=== PATIENT | male | born 1945 | race Caucasian/White ===

== ENCOUNTER → 2018-05-28 14:53 | Outpatient (CLI) | payer OTHER, SELFPAY | PROVIDERS: PCP Nurse Practitioner Family; Visit Provider Internal Medicine Interventional Cardiology | DX: R00.2 Palpitations (principal) | CPT/HCPCS: 93005; 93010 ==

== ENCOUNTER 2018-07-02 01:25 | Outpatient (CLI) | payer OTHER, SELFPAY | END 2018-07-02 01:45 | PROVIDERS: PCP Nurse Practitioner Family; Visit Provider Internal Medicine Interventional Cardiology | DX: R00.1 Bradycardia, unspecified (principal); I49.1 Atrial premature depolarization; I49.3 Ventricular premature depolarization | CPT/HCPCS: 93225 ==

== ENCOUNTER 2018-07-02 07:15 | Outpatient (CLI) | payer OTHER, SELFPAY ==
[2018-07-02 08:54] LABS: Hemoglobin A1C 5.1 % (4.5-6.2)
[2018-07-02 08:56] LABS: Anion Gap 8.5 mmol/L (3-11); BUN 16 mg/dL (7-18); CO2 27.5 mmol/L (21.0-32.0); CREATININE 0.82 mg/dL (0.70-1.30); Calcium 8.5 mg/dL (8.5-10.1); Chloride 106 mmol/L (98-107); Cholesterol 150 mg/dL (50-200); Glucose 105 mg/dL (70-100); HDL Cholesterol 80 mg/dL (40-60); LDL CHOLESTEROL 62 mg/dL (<100); Sodium 142 mmol/L (136-145); Triglyceride 26 mg/dL (30-150)
== END 2018-07-02 07:35 ==
PROVIDERS: PCP Nurse Practitioner Family; Visit Provider Nurse Practitioner Family
DX: R73.01 Impaired fasting glucose (principal); I10 Essential (primary) hypertension; E78.5 Hyperlipidemia, unspecified
CPT/HCPCS: 36415; 80048; 80061; 83721; 83036

== ENCOUNTER 2018-07-03 12:27 | Outpatient (CLI) | payer OTHER, SELFPAY ==
--- NOTE | 2018-07-03 16:08 | W.HOLTRPT ---
Holter Monitor Report Holter Monitor Note: Baseline rhythm sinus. Occasional single PAC. 26 first of SVT, longest 37 beats, fastest 178 bpm. No atrial fibrillation. Frequent single PVC, 1106, 1.1% total beat. 27 couplets, 1 triplet, no VT. Nocturnal heart rates as low as 50-55 bpm, sinus bradycardia. No symptoms. Average heart rate 74 bpm, range 51-126 bpm.
== END 2018-07-03 12:47 ==
PROVIDERS: PCP Nurse Practitioner Family; Visit Provider Nurse Practitioner Family
DX: I49.1 Atrial premature depolarization (principal); I49.3 Ventricular premature depolarization
CPT/HCPCS: 93226

== ENCOUNTER 2018-07-09 14:55 | Outpatient (CLI) | payer OTHER, SELFPAY | END 2018-07-09 15:15 | PROVIDERS: PCP Nurse Practitioner Family; Visit Provider Internal Medicine Interventional Cardiology | DX: R00.1 Bradycardia, unspecified (principal); I49.3 Ventricular premature depolarization; I49.1 Atrial premature depolarization; I10 Essential (primary) hypertension | CPT/HCPCS: 93005; 93010 ==

== ENCOUNTER 2018-08-20 08:46 | Outpatient (CLI) | payer OTHER, SELFPAY | END 2018-08-20 09:06 | PROVIDERS: PCP Nurse Practitioner Family; Visit Provider Internal Medicine Interventional Cardiology | DX: I49.3 Ventricular premature depolarization (principal); I49.1 Atrial premature depolarization; R00.1 Bradycardia, unspecified; I47.1 Supraventricular tachycardia | CPT/HCPCS: 93005; 93010 ==

== ENCOUNTER 2018-11-26 10:17 | Outpatient (CLI) | payer OTHER, SELFPAY | END 2018-11-26 10:37 | PROVIDERS: PCP Nurse Practitioner Family; Visit Provider Internal Medicine Interventional Cardiology | DX: I49.1 Atrial premature depolarization (principal); I49.3 Ventricular premature depolarization; R00.1 Bradycardia, unspecified; I10 Essential (primary) hypertension; R06.02 Shortness of breath | CPT/HCPCS: 93005; 93010 ==

== ENCOUNTER 2019-02-05 00:37 | Outpatient (CLI) | payer OTHER, SELFPAY ==
--- NOTE | 2019-02-05 08:40 | DI.MRI_ITS ---
SYMPTOM/DIAGNOSIS: PERSISTENT LLE TINGLING, S/P TX, ? HERNIATION, LOW BACK PAIN, SPINAL STENOSIS, RADICULOPATHY, LT LEG PARESTHESIAS, M54.42,G89.29,M48.00,R20.2,M54.16 LUMBAR SPINE MRI: Routine noncontrast examination. Comparison is made with 09/01/06. The conus medullaris has a normal appearance and location. At L 5-S 1, there is disc desiccation. There is a small central disc herniation which does not appear to impinge upon the nerve roots. There are degenerative changes of the facets present. Mild narrowing of the left neural foramen is seen. No significant right neural foraminal stenosis is present. At L 4-5, there is disc desiccation. Endplate degenerative signal changes are present. There is a small central disc herniation. There are hypertrophic changes of the facets and ligamentum flavum resulting in mild narrowing of the central spinal canal. There is mild right and moderate left neural foraminal stenosis. At L 3-4, there is disc desiccation. Endplate degenerative signal changes are present. There is a diffuse disc bulge. There are hypertrophic changes of the facets and ligament flavum resulting in marked central spinal canal stenosis. There is moderate right and moderately severe left neural foraminal stenosis. At L 2-3, there is disc desiccation. Endplate degenerative signal changes are present. No significant central spinal canal stenosis is seen. There is mild bilateral neural foraminal stenosis. At L 1-2, there is disc desiccation. There is a diffuse disc bulge. No significant central spinal canal stenosis is seen. No significant neural foraminal stenosis is present. Apart from the degenerative signal change, marrow signal is within normal limits. IMPRESSION: Multi level degenerative disc disease and facet arthropathy resulting in central spinal canal and neural foraminal stenosis. The findings are most marked at the L 3-4 disc level.
== END 2019-02-05 00:57 ==
PROVIDERS: PCP Nurse Practitioner Family; Visit Provider Nurse Practitioner Family
DX: M54.42 Lumbago with sciatica, left side (principal); M54.16 Radiculopathy, lumbar region; R20.2 Paresthesia of skin; M51.17 Intervertebral disc disorders with radiculopathy, lumbosacral region; M48.07 Spinal stenosis, lumbosacral region; G89.29 Other chronic pain
CPT/HCPCS: 72148

== ENCOUNTER 2019-02-20 10:11 | Outpatient (CLI) | payer OTHER, SELFPAY ==
[2019-02-20 10:46] VITALS: BP 117/68; PULSE 56; RESP 18; TEMP 36.5; O2SAT 98
[2019-02-20] MEDS: Omnipaque 240 MG/ML 50 ML BTL IJ (11:21)
[2019-02-20] MEDS: methylPREDNISolone ACETATE 40 MG/ML VIAL IJ (11:23)
[2019-02-20 11:28] VITALS: BP 138/73; PULSE 57; RESP 15; O2SAT 100
--- NOTE | 2019-02-20 11:32 | DI.RAD_ITS ---
SYMPTOM/DIAGNOSIS: LUMBAR RADICULOPATHY C-ARM: Fluoroscopy Time: 28.5 sec 15.36 mGy C-arm fluoroscopy was utilized by Dr. Villa. Hard copies show apparent epidural injection at the L 5-S 1 level midline.
--- NOTE | 2019-02-20 11:32 | PDOC.PAIN ---
Pain Clinic Procedure Note Current Active Problems Problem Status Onset Spinal stenosis of lumbar region with radiculopathy Acute EPIDURAL STEROID WITH CATHETER INJECTION PROCEDURE NOTE COMMENTS: Patient had several epidural steroid injections in the past 1999 1612. He has back pain mostly left-sided radiating to his left buttock and with numbness in his left foot. MRI shows multiple levels of degenerative changes with both foraminal and central stenosis worse at L3-4. JESUS ENRIQUE has been referred to the [facility] for lumbar epidural steroid injection. Patient was greeted by the nurse who verified patients name and . Patient was then taken to the fluoroscopy suite. Patient was interviewed and the medical record reviewed. There were no medical, pharmacologic, radiographic, or other structural contraindications to attempting fluoroscopically guided lumbar epidural steroid injection. Risks and expected side effects as well as potential benefits of the procedure were reviewed and voiced concerns addressed. The patient consent form was signed and witnessed. Standard time-out procedure was performed. Patient was placed in the prone position on the fluoroscopy table and automated blood pressure cuff and pulse oximeter applied. The skin entry point for entering/approaching the epidural space by a {L5-S1} and marked. Following thorough chlorhexadine preparation of the skin and draping and 1% lidocaine infiltration of the skin entry point and subcutaneous tissues, a 17 gauge Touhy needle was placed under fluoroscopic guidance and with loss of resistance technique into the epidural space. Needle tip placement and depth were aided and confirmed by fluoroscopy. There was no paresthesia or return of blood or CSF through the needle. An Arrow cath was thread to the {left and cephalad} and 1 cc's of Omnipaque 240 was injected with clear epidural spread confirmed with fluoroscopy. 80mg depomedrol was injected. There was not any unusual discomfort expressed. Vital signs were stable throughout the procedure and were as recorded in nursing records. Follow up plans and appointments were discussed.Post procedure instruction was given as documented in nursing records and having met discharge criteria and was discharged from the [facility]. COMMENTS: Patient will follow-up as needed. Can repeat or consider left L3-4 transforaminal injection. Does not appear to be a surgical candidate at this time.
== END 2019-02-20 10:31 ==
PROVIDERS: PCP Nurse Practitioner Family; Visit Provider Anesthesiology Pain Medicine
DX: M48.061 Spinal stenosis, lumbar region without neurogenic claudication (principal); M54.16 Radiculopathy, lumbar region
CPT/HCPCS: 62323; 72100; J1030; Q9967

== ENCOUNTER 2019-02-25 08:58 | Outpatient (CLI) | payer OTHER, SELFPAY | END 2019-02-25 09:18 | PROVIDERS: PCP Nurse Practitioner Family; Visit Provider Internal Medicine Interventional Cardiology | DX: R42 Dizziness and giddiness (principal); I10 Essential (primary) hypertension | CPT/HCPCS: 93005; 93010 ==

== ENCOUNTER 2019-05-21 07:06 | Outpatient (CLI) | payer OTHER, SELFPAY ==
[2019-05-21 07:52] LABS: ALT 37 U/L (12-78); AST 30 U/L (15-37); Albumin 3.7 g/dL (3.4-5.0); Alkaline Phosphatase 88 U/L (46-116); Anion Gap 8.4 mmol/L (3-11); BUN 21 mg/dL (7-18); Bilirubin, Total 0.6 mg/dL (0.2-1.0); CO2 27.6 mmol/L (21.0-32.0); CREATININE 0.98 mg/dL (0.70-1.30); Calcium 8.9 mg/dL (8.5-10.1); Calculated LDL 66 mg/dL; Chloride 103 mmol/L (98-107); Cholesterol 153 mg/dL (50-200); Glucose 97 mg/dL (70-100); HDL Cholesterol 82 mg/dL (40-60); Potassium 3.5 mmol/L (3.5-5.1); Sodium 139 mmol/L (136-145); Triglyceride 28 mg/dL (30-150)
== END 2019-05-21 07:26 ==
PROVIDERS: PCP Nurse Practitioner Family; Visit Provider Internal Medicine Interventional Cardiology
DX: I10 Essential (primary) hypertension (principal); E78.5 Hyperlipidemia, unspecified; R73.01 Impaired fasting glucose
CPT/HCPCS: 36415; 80053; 80061; 83721; 83036

== ENCOUNTER 2019-11-21 14:18 | Outpatient (REF) | payer OTHER, SELFPAY ==
[2019-11-21 16:31] LABS: Bilirubin Negative (Negative); Blood Trace-intact (Negative); Clarity Clear (Clear); Glucose Negative (Negative); Ketones Negative (Negative); Leukocyte Esterase Negative (Negative); Nitrite Negative (Negative); Specific Gravity >= 1.030 (1.005-1.025); Urobilinogen 0.2 EU/dL (Up TO 0.2); pH 5.5 (5-8)
[2019-11-21 16:48] LABS: Bacteria Negative HPF (Negative); C & S Indicated? No; Crystals Negative HPF (Negative); Epithelial Cells Negative HPF (Negative); Mucus Trace (Negative); RBC 0-2 HPF (0-2); WBC Negative HPF (0-5)
== END 2019-11-21 14:38 ==
LOC: LBN 14:18
PROVIDERS: PCP Nurse Practitioner Family; Visit Provider Urology
DX: N40.1 Benign prostatic hyperplasia with lower urinary tract symptoms (principal)
CPT/HCPCS: 81003; 81015

== ENCOUNTER 2020-04-09 00:58 | Outpatient (CLI) | payer OTHER, SELFPAY ==
--- NOTE | 2020-04-09 12:29 | DI.US_ITS ---
APPROVED REPORT EXAM: Comprehensive 2D, Doppler, and color-flow Echocardiogram Patient Location: Out-Patient Journe[employer] Powerhouse Operator: Ling Eli RDCS (AE) Indications: Ascending aorta dilation, Ventricular premature depolarization Other Information Study Quality: Adequate Conclusion Left Ventricle : The left ventricle is normal size. The left ventricular systolic function is normal. The left ventricular ejection fraction is within the normal range. There is normal left ventricular wall thickness. There is normal LV segmental wall motion. The left ventricular diastolic function is normal. LVEF is 60-65%. Right Ventricle : The right ventricle is normal size. The right ventricular systolic function is norm al. The RVSP is 28.7mmHg. Atria : The left atrium size is normal. The right atrium size is normal. Aortic Valve : Moderate aortic valve sclerosis. Aortic valve is trileaflet. There is no aortic valvul ar stenosis. Trace aortic regurgitation. Mitral Valve : Mild mitral annular calcification. No evidence of mitral valve stenosis. Mild mitral r egurgitation. Great Vessels : The aortic root is normal in size. 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 Aortic arc h is not well visualized. The IVC collapses <50% with inspiration. Compared to echocardiogram from 10/25/2017: The estimated RVSP has decreased and the mitral valve regu rgitation has decreased slightly. Wall motion Left Ventricle The left ventricle is normal size. The left ventricular systolic function is normal. The left ventric ular ejection fraction is within the normal range. There is normal left ventricular wall thickness. T here is normal LV segmental wall motion. The left ventricular diastolic function is normal. There is no ventricular septal defect visualized. LVEF is 60-65%. Right Ventricle The right ventricle is normal size. The right ventricular systolic function is normal. The RVSP is 28 .7mmHg. Atria The left atrium size is normal. The right atrium size is normal. The interatrial septum is intact wit h no evidence for an atrial septal defect. Aortic Valve Moderate aortic valve sclerosis. Aortic valve is trileaflet. There is no aortic valvular stenosis. Tr keena aortic regurgitation. Mitral Valve Mild mitral annular calcification. No evidence of mitral valve stenosis. Mild mitral regurgitation. Tricuspid Valve The tricuspid valve is normal in structure. There is no tricuspid valve stenosis. Trace tricuspid reg urgitation. Pulmonic Valve The pulmonary valve is normal in structure. There is no pulmonic valvular stenosis. Trace pulmonic re gurgitation. Great Vessels The aortic root is normal in size. 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 Aortic arch is not well vi sualized. The IVC collapses <50% with inspiration. Pericardium There is no pericardial effusion. There is no pleural effusion. 2D Dimensions IVSD d PLAX 1.05 cm M: 0.6-1.2 LV Vol A2C d MOD 151.7 mL LVPW d PLAX 1.06 cm M: 0.6 - 1.2 LV Vol A4C d MOD 150.5 mL LVID d PLAX 5.81 cm M: 4.2 - 5.8 LA vol/ BSA A2C s A-L 33.5 mL/m2 LVDs 4.00 cm M: 2.5 - 4.0 LA vol/ BSA A4C s A-L 26.6 mL/m2 Ao Root d 2.87 cm M: 3.1 - 3.7 LA Vol/ BSA Biplane s A-L 30.1 mL/m2 RA Area A4C 19.40 cm2 LA Area A4C s MOD 20.42 cm2 RA Vol/ BSA A4C s A-L 27.1 mL/m2 LA Area A2C s MOD 23.09 cm2 Ao Asc Diam d 4.16 cm M: 2.6 - 3.4 LV EF A4C MOD 63.4 % LV EF Teichholz 57.0 % LV EF A2C MOD 60.6 % LVEF (Gama's) 62.07 % M: 52 - 72 LV EF Biplane MOD 62.1 % LV Volume 109.45 mL M: 62 - 150 SV 93.93 mL LV Volume Index 48.86 mL/m2 M: 34 - 74 SV Index 41.94 mL/m2 LV Vol Biplane MOD 151.3 mL FS 30.35 % M-Mode TAPSE 2.60 cm (M/F) >1.7 LV Diastology MV E' medial 0.082 (>0.07 m/s) E/A Ratio 1.1 LV E/e MED 9.15 (<14) MV E Vmax 0.75 (0.4-1.3 m/s) MV E' lateral 0.143 (>0.1 m/s) MV A Vmax 0.70 (0.4-1.3 m/s) LV E/e LAT 5.25 (<14) MV E/A Ratio 1.05 MV E/E' medial 9.19 MV E/E' lateral 5.26 Aortic Valve LVOT Area 3.37 cm2 AoV Area Vmax 2.28 cm2 LVOT Vmax 1.19 m/s AoV Area/ BSA (Vmax) 1.02 cm2/m2 LVOT Mean Chandu. 0.77 m/s TERESA Mean Chandu. 2.09 cm2 LVOT Peak Grad 5.7 mmHg TERESA Mean Chandu. Index 0.93 cm2/m2 LVOT Mean Grad 2.8 mmHg AR DT 2258 msec LVOT VTI 0.283 m AR PHT 655 msec LVOT Diam s 2.05 cm AoV Vmax 1.76 m/s Velocity Ratio 0.67 AoV Mean Chandu. 1.25 m/s AoV Peak Grad 12.3 mmHg LVOT SV 95.28 mL AoV Mean Grad 6.9 mmHg AoV VTI 0.367 m AoV Area VTI 2.60 cm2 AoV Area/ BSA (VTI) 1.16 cm/m2 Mitral Valve MV DT 251 (160-240 msec) MR Vmax 4.67 m/s MV PHT 73 msec MR VTI 1.368 m MV Area PHT 3.03 cm2 MR Peak Grad 87.2 mmHg MR Mean Grad 65.3 mmHg MR PISA Radius 0.42 cm MR EROA 0.08 cm2 MR Aliasing Velocity 0.35 m/s MR PISA 1.09 cm2 Pulmonary Valve PV Vmax 1.61 (0.5-1.5 m/s) RVOT Peak Gr. 2.11 mmHg PV Peak Grad 10.4 mmHg RVOT Mean Gr. 1.15 mmHg PV Mean Grad 6.0 mmHg RVOT VTI 0.192 m PV VTI 0.359 m RVOT Vmax 0.73 m/s Tricuspid Valve TR Peak Grad 20.7 mmHg TR Vmax 2.27 m/s RA Pressure 8.00 mmHg RVSP (TR) 28.7 mmHg
== END 2020-04-09 01:18 ==
PROVIDERS: PCP Nurse Practitioner Family; Visit Provider Internal Medicine Cardiovascular Disease
DX: I49.3 Ventricular premature depolarization (principal); I77.810 Thoracic aortic ectasia; I34.0 Nonrheumatic mitral (valve) insufficiency; I35.8 Other nonrheumatic aortic valve disorders; I10 Essential (primary) hypertension
CPT/HCPCS: 93306

== ENCOUNTER 2020-05-05 13:21 | Outpatient (CLI) | payer OTHER, SELFPAY ==
--- NOTE | 2020-05-05 06:00 | DI.RAD_ITS ---
EXAM: XR PAIN CLINIC LUMBAR SP 2V CLINICAL HISTORY: Lumbar Radiculopathy. TECHNIQUE: Fluoroscopy was provided for the referring physician for guidance with performing injecti on procedure. COMPARISON: No exams were available for comparison FINDINGS: Please see procedure note for details. Fluoro Time: 33.2 seconds RADIATION DOSE DELIVERED:
[2020-05-05 13:24] VITALS: BP 117/65; PULSE 57; RESP 16; TEMP 37.1; O2SAT 99
[2020-05-05] MEDS: Omnipaque 240 MG/ML 50 ML BTL IJ (14:11)
[2020-05-05] MEDS: methylPREDNISolone ACETATE 80 MG/ML VIAL IJ (14:14)
--- NOTE | 2020-05-05 14:31 | PDOC.PAIN ---
Pain Clinic Procedure Note Procedure Note Procedure Note: Lumbar Epidural Steroid Injection Procedure Note Pre-operative diagnosis: lumbar spinal stenosis, lumbar radiculopathy Post-operative diagnosis: same as above COMMENTS: previously received LESI with variable pain relief. Predominant symptoms is left lower back with bilateral buttock pain. JESUS ENRIQUE has been referred to the [facility] for lumbar epidural steroid injection. The patient was greeted by the nurse who verified patients name and . Patient was then taken to the fluoroscopy suite. The patient was interviewed and the medial record reviewed. There were no medical, pharmacologic, radiographic, or other structural contraindications to attempting fluoroscopically guided lumbar epidural steroid injection. Risks and expected side effects as well as potential benefits of the procedure were reviewed and voiced concerns expressed. The patient consent form was signed and witnessed. Standard patient time-out procedure was performed. The patient was placed in the prone position on the fluoroscopy table and automated blood pressure cuff and pulse oximeter applied. The skin entry point for entering/approaching the epidural space by a L5-S1 and marked. Following thorough chlorhexadine preparation of the skin and draping and 1% lidocaine infiltration of the skin entry point and subcutaneous tissues, a 18 gauge Touhy needle was placed under fluoroscopic guidance and with loss of resistance technique into the epidural space. Needle tip placement and depth were aided and confirmed by fluoroscopy. There was no paresthesia or return of blood or CSF through the needle. 1 cc's of Omnipaque 240 was injected with clear epidural spread confirmed with fluoroscopy. 80mg depomedrol was injected. There was not any unusual discomfort expressed by JESUS ENRIQUE. Patient's vital signs were stable throughout the procedure and were as recorded in nursing records. Follow up plans and appointments were discussed with patient. Post procedure instruction was given as documented in nursing records and having met discharge criteria and was discharged from the [facility]. COMMENTS: If this procedure is helpful, it can be completed up to 3 times per 12 months. I personally performed the entire procedure. Rebel Su MD Pain Management
[2020-05-05 14:40] VITALS: BP 148/95; PULSE 62; RESP 20; O2SAT 98
== END 2020-05-05 13:41 ==
PROVIDERS: PCP Nurse Practitioner Family; Visit Provider Internal Medicine
DX: M48.061 Spinal stenosis, lumbar region without neurogenic claudication (principal); M54.16 Radiculopathy, lumbar region
CPT/HCPCS: 62323; 72100; J1040; Q9967

== ENCOUNTER 2020-05-22 12:46 | Outpatient (REF) | payer OTHER, SELFPAY ==
[2020-05-25 09:24] LABS: PSA, Diagnostic 1.4 ng/mL (0.0-6.5)
== END 2020-05-22 13:06 ==
LOC: LBN 12:46
PROVIDERS: PCP Nurse Practitioner Family; Visit Provider Urology
DX: N40.1 Benign prostatic hyperplasia with lower urinary tract symptoms (principal)
CPT/HCPCS: 84153

== ENCOUNTER 2020-06-11 10:08 | Outpatient (CLI) | payer OTHER, SELFPAY ==
[2020-06-11 10:17] VITALS: BP 104/59; PULSE 70; RESP 16; TEMP 37.1; O2SAT 94
[2020-06-11] MEDS: Bupivacaine 0.5% Pres-Free 10 ML VIAL IJ (10:50)
--- NOTE | 2020-06-11 10:57 | DI.RAD_ITS ---
EXAM: XR PAIN CLINIC LUMBAR SP 2V CLINICAL HISTORY: Dx:Lumbar Spondylosis TECHNIQUE: 2D and realtime digital imaging was performed. CONTRAST MATERIAL: Refer to procedure report. COMPARISON: No exams were available for comparison FINDINGS: Fluoroscopy was provided for Dr. Song during the performance of a lumbar epidural steroid injection. Please refer to the procedure report for complete details. Fluoro time: 55.1 seconds IMPRESSION:
--- NOTE | 2020-06-11 10:59 | PDOC.PAIN_ITS ---
Pain Clinic Procedure Note Procedure Note Procedure Note: Lumbar/Sacral Medial Branch Blocks JESUS ENRIQUE has been referred to the [facility] for lumbar/sacral medial branch blocks. COMMENTS: Previously seen in the clinic. Recent LESI without relief. Mostly axial low back pain with some pain radiating into the bilateral buttocks and thighs. DX: Lumbosacral spondylosis without myelopathy. Patient was interviewed and the medical record reviewed. There were no medical, pharmacologic, radiographic or other structural contraindications to attempting fluoroscopically guided local anesthetic lumbar/sacral medial branch blocks. Risks and expected side effects as well as potential benefit of the procedure were reviewed and voiced concerns addressed. The printed consent form was signed and witnessed. Standard time-out procedure was performed. Patient was placed in the prone position on the fluoroscopy table and automated blood pressure cuff and pulse oximeter applied. The skin entry points for approaching the anatomic target points of the segmental medial branches of bilateral L3-L5 were identified with anfluoroscopy and marked. Following thorough Chlorhexadine preparation of the skin and draping and 1% lidocaine infiltration of the skin entry points and subcutaneous tissues, a 22 gauge spinal needle was placed under fluoroscopic guidance down on to the target point for each respective segmental medial branch.Position was confirmed in A/P, oblique and lateral views with 0.25ml of omnipaque 240. At this point I injected 0.5ml of 0.5% Bupivacaine at the segmental nerve. Vital signs were stable throughout the procedure and were as recorded in the docflowsheet by the nursing staff. Follow up plans and appointments were discussed and was instructed to keep careful note of how the usual pain was modified by these injections. Mallorie rodriguez was asked to keep a pain diary for the next 24 hours using a numeric pain scale of 0-10 and report these results at the follow-up visit. Post procedure instruction was given as documented in the nursing documentation and having met discharge criteria. Patient was discharged from the [facility]. Based on the medial branches blocked today, if the patient has adequate relief and we are able to proceed to radiofrequency ablation, the treatment should result in the denervation of the bilateral L4-L5 and L5-S1 FACET JOINTS. We would expect to denervate a total of 4 facets during the radiofrequency ablation. COMMENTS: He will call back with his 1-4 hour post-procedure pain scores. CC: Katie Bradford APRN
[2020-06-11 11:06] VITALS: BP 123/74; PULSE 63; RESP 18; O2SAT 97
[2020-06-11] MEDS: Omnipaque 240 MG/ML 50 ML BTL IJ (11:06)
== END 2020-06-11 10:28 ==
PROVIDERS: PCP Nurse Practitioner Family; Visit Provider Preventive Medicine Occupational Medicine
DX: M47.817 Spondylosis without myelopathy or radiculopathy, lumbosacral region (principal)
CPT/HCPCS: 64493; 64494; 72100; Q9967

== ENCOUNTER 2020-07-10 04:40 | Outpatient (CLI) | payer OTHER, SELFPAY ==
--- NOTE | 2020-07-10 | DI.MRI_ITS ---
EXAM: MR LUMBAR SPINE WO CLINICAL HISTORY: LUMBAR SPINAL STENOSIS, BACK PAIN, BILAT LEG PAIN TECHNIQUE: Multiplanar multisequence MRI was performed. COMPARISON: CR LEFT SHOULDER COMPLETE from 09/16/2016 MR MR lumbar spine wo from 02/05/2019 MR MR lumbar spine wo from 02/05/2019 FINDINGS: The conus medullaris appears normal. There is red marrow reconversion. Prominent disc osteophytes a re again noted from T12-L1 through L4-5. Milder degenerative disc changes are seen at L5-S1. The T12-L1 and L1-2 levels show no significant central canal stenosis. At L2-3, there is mild centra l canal stenosis and moderate neural foraminal narrowing. This appears stable. At L3-4, there are ag ain noted to be broad-based disc osteophytes, facet degenerative changes and ligamentous hypertrophy combining to produce severe central canal stenosis, unchanged. There is also severe neural foraminal narrowing, greater on the left. At L4-5, there are prominent broad-based disc osteophytes and facet degenerative changes combine to produce mild to moderate central canal stenosis, unchanged. There i s bilateral neural foraminal narrowing, greater on the left. At L5-S1, there is again noted be minim al disc bulging. There are facet degenerative changes and ligamentous hypertrophy combining to produ ce mild central canal stenosis and left neural foraminal narrowing. IMPRESSION: Stable severe degenerative disc changes and facet degenerative changes, greatest at L 3 4 where there is severe central canal stenosis and bilateral neural foraminal narrowing. DATA REPOSITORY:
== END 2020-07-10 05:00 ==
PROVIDERS: PCP Nurse Practitioner Family; Visit Provider Nurse Practitioner Family
DX: M47.816 Spondylosis without myelopathy or radiculopathy, lumbar region (principal); M48.061 Spinal stenosis, lumbar region without neurogenic claudication; M47.817 Spondylosis without myelopathy or radiculopathy, lumbosacral region
CPT/HCPCS: 72148

== ENCOUNTER 2020-07-28 14:35 | Outpatient (CLI) | payer OTHER, SELFPAY ==
--- NOTE | 2020-07-28 06:00 | DI.RAD_ITS ---
EXAM: XR PAIN CLINIC LUMBAR SP 2V CLINICAL HISTORY: Dx: Lumbar Radiculopathy. TECHNIQUE: Fluoroscopy was provided for the referring physician for guidance with performing injecti on procedure. COMPARISON: No exams were available for comparison FINDINGS: Please see procedure note for details. Fluoro time: 30.4 secs, 18.93 mGy RADIATION DOSE DELIVERED:
[2020-07-28 14:48] VITALS: BP 137/77; PULSE 58; RESP 16; TEMP 37.2; O2SAT 98
[2020-07-28] MEDS: Omnipaque 240 MG/ML 50 ML BTL IJ (15:30)
[2020-07-28] MEDS: methylPREDNISolone ACETATE 80 MG/ML VIAL IJ (15:30)
[2020-07-28] MEDS: Normal Saline 20 ML VIAL (15:31)
[2020-07-28 15:36] VITALS: BP 136/81; PULSE 66; RESP 20; O2SAT 94
--- NOTE | 2020-07-28 15:38 | PDOC.PAIN ---
Pain Clinic Procedure Note Procedure Note Procedure Note: PROCEDURE NOTE CAUDAL EPIDURAL STERIOID INJECTION Date of Service: July 28, 2020 Patient: JESUS ENRIQUE Provider: Laly Gaitan KLAUS has been referred to the [facility] for caudal epidural steroid injection. Pre-operative diagnosis: lumbar spinal stenosis Post-operative diagnosis: same as above COMMENTS: Referring provider: Jennyopal Weinstein APRN Symptoms: dull ache across lower back with bilateral buttock ache and intermittent leg pain Imaging reviewed: MRI L spine done 07/10/2020 reviewed with patient Notes: patient underwent L5-S1 LESI by Dr Villa in 2018 which provided significant pain relief to his lower back and leg symptoms that lasted for more than 12 months. Then pain recurred in similar distribution in december 2019, he undewrent L5-S1 by me in 04/2020 which unfortunatley provided minimal pain relief. Due to axial back pain that is described as dull and ache, patient was scheduled for bilateral lumbar diagnostic medial branch nerve block with Dr Song, which unfortunately provided mixed results. He is here today to have a repeat lumbar epidural steroid injection. I reviewed the most recent MRI L spine result with him in pre-procedure suite. He reports he can no longer walk as much as he would like, and there is dull ache extending from his lower back down bilateral buttock and lateral thighs that seemed to be more constant and a daily occurence rather than episodic as compared to before. I discussed with him that he exhibits symptoms of symptomatic neurogenic claudication from spinal stenosis. LESI may provide pain relief but if not sustained, then he may need to speak to a spine surgeon. He tells me that a referral has already been sent to [facility] for pain and spine. JESUS was interviewed and the medical record was reviewed. There were no medical, pharmacologic, radiographic or other structural contraindications to attempting fluoroscopically guided epidural steroid injection. Risks and expected side effects as well as potential benefit of the procedure were reviewed with Mr ENRIQUE, and his voiced concerns were addressed. The printed consent form was signed and witnessed. Standard time-out procedure was performed. Mr ENRIQUE was placed in the prone position on the fluoroscopy table and automated blood pressure cuff and pulse oximeter applied. The skin entry point for entering/approaching the epidural space by a caudal approach through the sacral hiatus ed identified with surgical skin marking. Following thorough chlorhexidine preparation x 2 of the skin and draping and 1% lidocaine infiltration of the skin entry point and subcutaneous tissues, a 17 gauge Touhy needle was placed under fluoroscopic guidance into the epidural space. Needle tip placement and depth were aided and confirmed by fluoroscopy in the lateral and AP position. There was no paresthesia or return of blood or CSF through the needle. 0.5 cc of Omnipaque 240 was injected with clear epidural spread confirmed with fluoroscopy. An Arrow 19G radio-opaque epidural catheter was advanced into the epidural space to the L4-5 and 1 cc of Omnipaque 240 was injected with clear epidural spread. 80 mg of Depomedrol was injected. There was no unusual discomfort expressed by JESUS . The needle and catheter were then flushed with 2 cc of 1% Lidocaine and 2cc of preservative free normal saline, they were removed without difficulty. (48 cc of Omnipaque was wasted) Mr ENRIQUE's vital signs were stable throughout the procedure and were as recorded in the docflowsheet by the nursing staff. If given, dosages of intravenous drugs for anxiolysis and analgesia were documented in MAR. Follow up plans and appointments were discussed with Narinder ENRIQUE. Post procedure instruction was given as documented in nursing documentation and having met discharge criteria, @HE@ was discharged from the [facility]. COMMENTS: No apparent complications. This procedure can be completed up to 3 times per 12 months. Repeat if this provides significant pain relief that results in improved function. Follow-up with Ms Jenny Weinstein APRN on prn basis. I personally completed the entire procedure. Rebel Su MD Cutting Machine [employer]/[facility] [employer] [facility] ABPN - Subspecialty board certification in Pain Medicine
== END 2020-07-28 14:55 ==
PROVIDERS: PCP Nurse Practitioner Family; Visit Provider Internal Medicine
DX: M48.061 Spinal stenosis, lumbar region without neurogenic claudication (principal)
CPT/HCPCS: 62323; 72100; J1040; Q9967

== ENCOUNTER 2020-09-14 08:18 | Outpatient (CLI) | payer OTHER, SELFPAY ==
--- NOTE | 2020-09-14 08:15 | RT.EKG_ITS ---
APPROVED REPORT Exam: Resting ECG Patient Location: O HR:57 bpm ECG Measurements Heart Rate 57 AXIS WI 247 P 70 QRSd 108 QRS -35 QT 427 T 51 QTc 415 Conclusion Sinus bradycardia...rate< 60 Prolonged WI interval...WI >220, V-rate 50- 90 Left axis deviation...QRS axis (-30,-90)
== END 2020-09-14 08:38 ==
PROVIDERS: PCP Nurse Practitioner Family; Visit Provider Nurse Practitioner Family
DX: R69 Illness, unspecified (principal)

== ENCOUNTER 2020-09-17 05:17 | Outpatient (CLI) | payer OTHER, SELFPAY ==
[2020-09-17 08:05] LABS: HCT 43.9 % (40.0-50.0); HGB 15.1 g/dL (13.5-17.5); MCHC 34.4 % (32.0-36.0); MPV 10.5 fL (8.0-11.0); Platelet Count 189 10^3/uL (130-400); RBC 4.72 10^6/uL (4.36-5.78); RDW 11.8 % (11.8-14.1); RDW-SD 39.8 fL; WBC 6.54 10^3/uL (4.4-10.8)
[2020-09-17 08:27] LABS: ALT 36 U/L (16-63); AST 26 U/L (15-37); Alkaline Phosphatase 105 U/L (46-116); Anion Gap 5.1 mmol/L (3-11); BUN 18 mg/dL (7-18); Bilirubin, Total 0.7 mg/dL (0.2-1.0); CO2 31.9 mmol/L (21.0-32.0); CREATININE 1.05 mg/dL (0.70-1.30); Calcium 9.5 mg/dL (8.5-10.1); Calculated LDL 70 mg/dL (<100); Chloride 101 mmol/L (98-107); Cholesterol 140 mg/dL (<200); Glucose 111 mg/dL (74-106); HDL Cholesterol 62 mg/dL (40-60); Potassium 3.8 mmol/L (3.5-5.1); Sodium 138 mmol/L (136-145); Total Protein 7.1 g/dL (6.4-8.2); Triglyceride 40 mg/dL (<150)
== END 2020-09-17 05:37 ==
PROVIDERS: PCP Nurse Practitioner Family; Visit Provider Orthopaedic Surgery
DX: E78.5 Hyperlipidemia, unspecified (principal); I10 Essential (primary) hypertension; M48.062 Spinal stenosis, lumbar region with neurogenic claudication; Z51.81 Encounter for therapeutic drug level monitoring
CPT/HCPCS: 36415; 80053; 80061; 85027; 85610

== ENCOUNTER → 2020-11-25 13:27 | Outpatient (BNVA) | payer MEDICARE, BC, SELFPAY | PROVIDERS: PCP Nurse Practitioner Family; Referring Provider Nurse Practitioner Family; Visit Provider Nurse Practitioner Gerontology | DX: N40.1 Benign prostatic hyperplasia with lower urinary tract symptoms (principal); R35.0 Frequency of micturition | CPT/HCPCS: 99213 ==

== ENCOUNTER → 2021-01-28 10:19 | Outpatient (BNVA) | payer MEDICARE, BC, SELFPAY | PROVIDERS: PCP Nurse Practitioner Family; Referring Provider Nurse Practitioner Family; Visit Provider Nurse Practitioner Gerontology | DX: M54.5 Low back pain (principal); R35.0 Frequency of micturition | CPT/HCPCS: 81003; 99213 ==

== ENCOUNTER → 2021-03-11 11:25 | Outpatient (BNVA) | payer MEDICARE, BC, SELFPAY | PROVIDERS: PCP Nurse Practitioner Family; Referring Provider Nurse Practitioner Family; Visit Provider Internal Medicine Cardiovascular Disease | DX: I77.810 Thoracic aortic ectasia (principal); I10 Essential (primary) hypertension; I49.3 Ventricular premature depolarization | CPT/HCPCS: 99213 ==

== ENCOUNTER 2021-04-23 09:00 | Outpatient (CLI) | payer MEDICARE, BC, SELFPAY ==
--- NOTE | 2021-04-23 08:45 | DI.RAD_ITS ---
Exam(s) XR HIP RT COMPLETE AP PELVIS EXAM: XR HIP RT COMPLETE AP PELVIS INDICATION: right hip OA. COMPARISON: No exams were available for comparison TECHNIQUE: 2D digital imaging was performed. FINDINGS: Bones are normally mineralized. There is moderate narrowing of both hip joint spaces. There is bila teral acetabular spurring as well as mild spurring from the margins of the femoral heads. A subchond ral cyst is seen in the right superior acetabulum. Enthesophytes are noted at the iliac wings. Ther e is severe narrowing and prominent endplate osteophytes seen at the L4-5 disc level. IMPRESSION: Moderate degenerative changes of both hips. DATA REPOSITORY: RADIATION DOSE DELIVERED:
== END 2021-04-23 09:01 | disposition home or self-care (01) ==
LOC: DIORS 09:00
PROVIDERS: PCP Nurse Practitioner Family; Referring Provider Nurse Practitioner Family; Visit Provider Student in an Organized Health Care Education/Training Program
DX: M16.11 Unilateral primary osteoarthritis, right hip (principal)
CPT/HCPCS: 99215; 73502

== ENCOUNTER → 2021-05-24 09:42 | Outpatient (BNVA) | payer MEDICARE, BC, SELFPAY | PROVIDERS: PCP Nurse Practitioner Family; Referring Provider Nurse Practitioner Family; Visit Provider Nurse Practitioner Gerontology | DX: N40.1 Benign prostatic hyperplasia with lower urinary tract symptoms (principal); Z79.899 Other long term (current) drug therapy | CPT/HCPCS: 99213 ==

== ENCOUNTER 2021-08-10 12:50 | Outpatient (CLI) | payer MEDICARE, BC, SELFPAY ==
--- NOTE | 2021-08-10 11:30 | DI.RAD_ITS ---
Exam(s) XR PELVIS AP EXAM: XR PELVIS AP CLINICAL HISTORY: Mag Marker - Pre-Op TECHNIQUE: COMPARISON: CR XR HIP RT COMPLETE AP PELVIS from 04/23/2021 FINDINGS: Single AP view was obtained with apparent template marker. There are severe degenerative changes of both hips. No other focal abnormality seen. IMPRESSION: RADIATION DOSE DELIVERED: Total DLP
== END 2021-08-10 12:51 | disposition home or self-care (01) ==
LOC: DIORS 12:51
PROVIDERS: PCP Nurse Practitioner Family; Referring Provider Nurse Practitioner Family; Visit Provider Physician Assistant Surgical
DX: M16.11 Unilateral primary osteoarthritis, right hip (principal); Z01.818 Encounter for other preprocedural examination; M16.12 Unilateral primary osteoarthritis, left hip
CPT/HCPCS: 72170

== ENCOUNTER 2021-08-16 03:44 | Outpatient (CLI) | payer MEDICARE, BC, SELFPAY ==
[2021-08-16 09:17] LABS: HCT 44.9 % (40.0-50.0); HGB 15.1 g/dL (13.5-17.5); MCH 31.4 pg (27.0-33.0); MCHC 33.6 % (32.0-36.0); MCV 93.3 fL (80-95); MPV 9.7 fL (8.0-11.0); Platelet Count 218 10^3/uL (130-400); RBC 4.81 10^6/uL (4.36-5.78); RDW 12.2 % (11.8-14.1); RDW-SD 42.2 fL; WBC 7.52 10^3/uL (4.4-10.8)
[2021-08-16 10:30] LABS: Anion Gap 8.3 mmol/L (3-11); BUN 21 mg/dL (7-18); CO2 31.7 mmol/L (21.0-32.0); Calcium 9.7 mg/dL (8.5-10.1); Chloride 101 mmol/L (98-107); Glucose 87 mg/dL (74-106); Potassium 3.9 mmol/L (3.5-5.1); Sodium 141 mmol/L (136-145)
[2021-08-16 11:41] LABS: Source Nasal/Nares
[2021-08-16 15:51] LABS: COVID-19 PCR Negative (Negative)
== END 2021-08-16 03:45 | disposition home or self-care (01) ==
LOC: LBO 03:44
PROVIDERS: PCP Nurse Practitioner Family; Visit Provider Student in an Organized Health Care Education/Training Program
DX: M25.551 Pain in right hip (principal); M16.11 Unilateral primary osteoarthritis, right hip; Z20.822 Contact with and (suspected) exposure to COVID-19; Z01.818 Encounter for other preprocedural examination; Z01.812 Encounter for preprocedural laboratory examination
CPT/HCPCS: 36415; 80048; 85027; 86850; 86900; 86901; 87635

== ENCOUNTER 2021-08-17 05:59 | Day surgery (SDC) | payer MEDICARE, BC, SELFPAY ==
[2021-08-17] VITALS (11 sets, daily range): BP systolic 79–126; BP diastolic 50–71; PULSE 83–127; RESP 16–20; TEMP 36.6–36.7; O2SAT 96–98; BMI 31.2
--- NOTE | 2021-08-17 06:32 | PDOC.DSDIS_ITS ---
Documented by User: MARCELLE Carvalho 08/17/21 06:37 Discharge Plan Disposition Patient Disposition: HOME Condition: Stable Discharge Details Reason For Visit: Right FELICIA Attending Provider: Pancho Yeager Primary Care Provider: Katie Bradford Home Meds and New Rx's Prescriptions: New celecoxib [Celebrex] 200 mg capsule 200 mg PO BID Qty: 60 RF: 0 aspirin 81 mg tablet,delayed release (DR/EC) 81 mg PO BID Qty: 60 RF: 0 acetaminophen [Tylenol Extra Strength] 500 mg tablet 500 mg PO Q6H PRNQty: 90 RF: 0 pantoprazole [Protonix] 40 mg tablet,delayed release (DR/EC) 40 mg PO DAILY Qty: 30 RF: 0 oxycodone 5 mg tablet 5 mg PO Q4H PRNQty: 18 RF: 0 Continued Shingrix (PF) 50 mcg/0.5 mL suspension for reconstitution 50 mcg IM .COMPLEX Qty: 1 RF: 1 tamsulosin [Flomax] 0.4 mg capsule 0.4 mg PO DAILY Qty: 90 RF: 3 CPAP 1 ea inhalation HS RF: 0 atorvastatin [Lipitor] 40 mg tablet 40 mg PO HS Qty: 90 RF: 3 fluticasone propionate 50 mcg/actuation spray,suspension 1 - 2 spray NS DAILY Qty: 1 RF: 12 chlorthalidone 25 mg tablet 25 mg PO DAILY Qty: 90 RF: 6 losartan 25 mg tablet 25 mg PO BID Qty: 180 RF: 3 metoprolol tartrate 25 mg tablet 12.5 mg PO BID Qty: 60 RF: 3 Discontinued aspirin 81 MG tablet,delayed release (DR/EC) 81 mg PO DAILY RF: 0 ibuprofen 200 mg Tablet 600 mg PO Q6H PRNRF: 0 Discharge Instructions Additional Instructions: Total Hip Discharge Instructions Activity: The most important activity is to walk. You should try to take short walks a few times a day. You have no restrictions on movement or positioning, but do not try to force what you do. You will find some stiffness and weakness with hip flexion (lifting your knee). Do not try to strengthen this too early, continue to practice walking and stairs and this will come. - Outpatient physical therapy can be helpful to help return you to a normal gait and improve your flexibility and strength. This can start around 2 weeks. For some patients, it?s not necessary. Usually this is determined at the time of discharge or at the first post-operative visit. - You should wear the KIKI hose on both legs for 2 weeks. Dressing: Keep the surgical dressing in place for at least one week. After the first week it may be removed and replace with light gauze and tape or nothing. It may get wet after 3 days but avoid soaking the dressing. If it gets wet, just lightly pat dry. It is important to always keep some gauze between skin folds, especially when you are sitting. Spend some time with the wound exposed when you are lying flat as the incision does wrinkle onto itself. Medications: - You should take Tylenol and an anti-inflammatory Celebrex as your primary pain control medications. If the Celebrex is too expensive or not covered, please call the office for another alternative (Advil/Ibuprofen or Naproxen/Aleve). You may use the Celebrex called in for Mariajose and not tow picker this current prescription. - You have been prescribed a stronger pain medication Oxycodone for breakthrough pain, take as needed as prescribed. - You have also been prescribed a stomach acid reduction agent Pantoprozole to help reduce stomach acid and reflux. - You will be taking Aspirin 81mg twice a day for DVT prevention unless instructed otherwise. - If you have constipation you should take Colace or Miralax (both [id number]). It takes most people 3-4 days to have a bowel movement. Follow-up: 2 weeks If you have any acute concerns or questions, please do not hesitate to contact the office at [phone]. You may contact Dr. Yeager with any questions after hours through the hospital at [phone] or on his cell phone at [phone]. Stand Alone Forms: Anesthesia Discharge Inst. Referrals: Pancho Yeager MD [ [facility] STAFF PHYSICIAN] - Equipment/Supplies: Walker Activity:: Activity as Tolerated Remove Dressings/Wound Care:: Do Not Remove Shower/Bathe:: 72 hours Diet:: As Tolerated Discharge Orders Discharge Orders: Discharge Order (Routine); Ordered 08/17/21 Ordered By: aLna River DS: Diagnosis Discharge Diagnosis (1) Osteoarthritis of right hip: Status: Acute Documented by User: Pancho Yeager MD 08/17/21 12:48 Discharge Plan Disposition Patient Disposition: HOME Condition: Stable Discharge Details Reason For Visit: Right FELICIA Attending Provider: Pancho Yeager Primary Care Provider: Katie Bradford Home Meds and New Rx's Prescriptions: New celecoxib [Celebrex] 200 mg capsule 200 mg PO BID Qty: 60 RF: 0 aspirin 81 mg tablet,delayed release (DR/EC) 81 mg PO BID Qty: 60 RF: 0 acetaminophen [Tylenol Extra Strength] 500 mg tablet 500 mg PO Q6H PRNQty: 90 RF: 0 pantoprazole [Protonix] 40 mg tablet,delayed release (DR/EC) 40 mg PO DAILY Qty: 30 RF: 0 oxycodone 5 mg tablet 5 mg PO Q4H PRNQty: 18 RF: 0 Continued Shingrix (PF) 50 mcg/0.5 mL suspension for reconstitution 50 mcg IM .COMPLEX Qty: 1 RF: 1 tamsulosin [Flomax] 0.4 mg capsule 0.4 mg PO DAILY Qty: 90 RF: 3 CPAP 1 ea inhalation HS RF: 0 atorvastatin [Lipitor] 40 mg tablet 40 mg PO HS Qty: 90 RF: 3 fluticasone propionate 50 mcg/actuation spray,suspension 1 - 2 spray NS DAILY Qty: 1 RF: 12 chlorthalidone 25 mg tablet 25 mg PO DAILY Qty: 90 RF: 6 losartan 25 mg tablet 25 mg PO BID Qty: 180 RF: 3 metoprolol tartrate 25 mg tablet 12.5 mg PO BID Qty: 60 RF: 3 Discontinued aspirin 81 MG tablet,delayed release (DR/EC) 81 mg PO DAILY RF: 0 ibuprofen 200 mg Tablet 600 mg PO Q6H PRNRF: 0 Discharge Instructions Additional Instructions: Total Hip Discharge Instructions Activity: The most important activity is to walk. You should try to take short walks a few times a day. You have no restrictions on movement or positioning, but do not try to force what you do. You will find some stiffness and weakness with hip flexion (lifting your knee). Do not try to strengthen this too early, continue to practice walking and stairs and this will come. - Outpatient physical therapy can be helpful to help return you to a normal gait and improve your flexibility and strength. This can start around 2 weeks. For some patients, it?s not necessary. Usually this is determined at the time of discharge or at the first post-operative visit. - You should wear the KIKI hose on both legs for 2 weeks. Dressing: Keep the surgical dressing in place for at least one week. After the first week it may be removed and replace with light gauze and tape or nothing. It may get wet after 3 days but avoid soaking the dressing. If it gets wet, just lightly pat dry. It is important to always keep some gauze between skin folds, especially when you are sitting. Spend some time with the wound exposed when you are lying flat as the incision does wrinkle onto itself. Medications: - You should take Tylenol and an anti-inflammatory Celebrex as your primary pain control medications. If the Celebrex is too expensive or not covered, please call the office for another alternative (Advil/Ibuprofen or Naproxen/Aleve). You may use the Celebrex called in for Mariajose and not tow picker this current prescription. - You have been prescribed a stronger pain medication Oxycodone for breakthrough pain, take as needed as prescribed. - You have also been prescribed a stomach acid reduction agent Pantoprozole to help reduce stomach acid and reflux. - You will be taking Aspirin 81mg twice a day for DVT prevention unless instructed otherwise. - If you have constipation you should take Colace or Miralax (both [id number]). It takes most people 3-4 days to have a bowel movement. Follow-up: 2 weeks If you have any acute concerns or questions, please do not hesitate to contact the office at [phone]. You may contact Dr. Yeager with any questions after hours through the hospital at [phone] or on his cell phone at [phone]. Stand Alone Forms: Anesthesia Discharge Inst. Referrals: Pancho Yeager MD [ [facility] STAFF PHYSICIAN] - Equipment/Supplies: Walker Activity:: Activity as Tolerated Remove Dressings/Wound Care:: Do Not Remove Shower/Bathe:: 72 hours Diet:: As Tolerated Discharge Orders Discharge Orders: Discharge Order (Routine); Ordered 08/17/21 Ordered By: Lana River
[2021-08-17] MEDS: Celecoxib 200 MG CAP 400 MG PO (06:45)
[2021-08-17] MEDS: Acetaminophen 500 MG TAB 1000 MG PO (06:45)
--- NOTE | 2021-08-17 06:50 | ANES.PREOP_ITS ---
General Info Date of Service Date Performed: 08/17/21 Height: 6 ft Weight: 104.5 kg Body Mass Index (BMI): 31.2 Surgical Procedure: Operation Date: 08/17/21 07:50 Proposed Procedures Side Surgeon p Hip Total Hip Anterior Right Pancho Yeager MD Meds Allergies and Home Medications Allergies Allergy/AdvReac Type Severity Reaction Status Date / Time No Known Drug Allergies Allergy Verified 08/17/21 06:22 Home Medication Medication Instructions Recorded varicella-zoster glycoE [id number] 50 mcg IM .COMPLEX #1 each 06/27/18 adj(PF) 50 mcg/0.5 mL IM susp, kit CPAP 1 ea INHALATION HS 03/12/20 atorvastatin 40 mg tablet 40 mg PO HS #90 tab-cap 07/08/20 fluticasone propionate 50 1 - 2 spray NS DAILY #1 unit 10/05/20 mcg/actuation nasal spray,suspension tamsulosin 0.4 mg capsule 0.4 mg PO DAILY #90 tab-cap 11/25/20 chlorthalidone 25 mg tablet 25 mg PO DAILY #90 tab 12/31/20 losartan 25 mg tablet 25 mg PO BID #180 tab-cap 12/31/20 metoprolol tartrate 25 mg tablet 12.5 mg PO BID #60 tab 04/01/21 acetaminophen [Tylenol Extra 500 mg PO Q6H PRN #90 tab 08/17/21 Strength] aspirin 81 mg PO BID #60 tab 08/17/21 celecoxib [Celebrex] 200 mg PO BID #60 cap 08/17/21 oxycodone 5 mg PO Q4H PRN #18 tab 08/17/21 pantoprazole [Protonix] 40 mg PO DAILY #30 tab 08/17/21 Current Visit Medications: Current Medications Generic Name Dose Route Start Last Admin Trade Name Freq PRN Reason Stop Dose Admin Acetaminophen 1,000 mg 08/17/21 06:00 08/17/21 06:45 Acetaminophen 500 Mg Tab PO 08/17/21 16:00 1,000 mg PREOP JESSE Administration Acetaminophen 1,000 mg 08/17/21 09:00 Acetaminophen 500 Mg Tab PO TID JESSE Aspirin 81 mg 08/17/21 09:00 Aspirin E.C. 81 Mg Tabec PO BID JESSE Celecoxib 400 mg 08/17/21 06:00 08/17/21 06:45 Celecoxib 200 Mg Cap PO 08/17/21 16:00 400 mg PREOP JESSE Administration Celecoxib 200 mg 08/17/21 09:00 Celecoxib 200 Mg Cap PO BID JESSE Docusate Sodium 100 mg 08/17/21 06:30 Docusate Sodium 100 Mg Cap PO BID PRN PRN Constipation Hydromorphone HCl 0.5 mg 08/17/21 06:30 Hydromorphone 2 Mg/Ml Vial IVP Q2H PRN PRN Tranexamic Acid 1,000 mg/ 60 mls @ 360 mls/hr 08/17/21 06:00 Sodium Chloride IV 08/17/21 16:00 PREOP JESSE Ringer's Solution 1,000 mls @ 80 mls/hr 08/17/21 06:00 IV 09/15/21 23:59 INFUSION JESSE Cefazolin Sodium/Dextrose 2 gm in 50 mls @ 100 mls/hr 08/17/21 06:00 Ancef Duplex IVPB 09/15/21 23:59 PREOP JESSE Cefazolin Sodium/Dextrose 1 gm in 50 mls @ 100 mls/hr 08/17/21 15:00 Ancef Duplex IVPB 08/18/21 07:29 Q8H JESSE IV Miscellaneous Supplies 1 each 08/17/21 06:00 Iv Access IV 09/15/21 23:59 DIRECTED JESSE Ondansetron HCl 4 mg 08/17/21 06:30 Ondansetron 4 Mg/2 Ml Vial IVP Q6H PRN PRN Nausea Oxycodone HCl 0 mg 08/17/21 06:30 Oxycodone 5 Mg Tab PO Q3H PRN PRN Pain Sodium Chloride 0 ml 08/17/21 06:00 Normal Saline Flush 10 Ml Syr IV 09/15/21 23:59 PRN PRN Sodium Chloride 0 ml 08/17/21 06:00 Normal Saline 10 Ml Vial IJ 09/15/21 23:59 DIRECTED PRN Sterile Water 0 ml 08/17/21 06:00 Water,Injection,Sterile 10 Ml Vial IJ 09/15/21 23:59 DIRECTED PRN PFSH Active Problems Active Problems: Problem Status Onset Code Mild dilation of ascending aorta I77.810 Osteoarthritis of right hip M16.11 Obesity (BMI 30-39.9) E66.9 Asthma J45.909 Spinal stenosis of lumbar region with radiculopathy M48.061, M54.16 Obstructive sleep apnea 08/25/15 G47.33 Male erectile disorder 01/24/14 N52.9 IFG (impaired fasting glucose) 06/13/13 R73.01 Hyperlipidemia 07/27/15 E78.5 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) Asymptomatic, confirmed w/ Holter 2016; Echo 10/25/2017 showing moderate LVH & moderate R atrial dilation (EF 50%) --> beta alicia started GERD (gastroesophageal reflux disease) Hyperlipidemia (07/27/15) IFG (impaired fasting glucose) (06/13/13) Male erectile disorder (01/24/14) Meniere's disease Obesity (BMI 30-39.9) Obstructive sleep apnea (08/25/15) CPAP AHI 45.9; Adrienne Maldonado MD 12/12/19 severe Nupur Calle- CPAP 03/12/20 F/U sleep clinic Spinal stenosis of lumbar region with radiculopathy Synovial cyst of popliteal space [Reyes], right knee Surgical History Surgical History (Updated 08/17/21 @ 06:22 by Jose Alberto Hudson) H/O laminectomy H/O umbilical hernia repair Open Carpal Tunnel release (09/01/15) L; Dr Castellon Repair of inguinal hernia (07/26/13) right indirect inquinal hernia, Dr. Sarbjit Varner Rotator Cuff Repair (11/29/16) L shoulder. Dr. Yeager [facility]. S/P appendectomy Trigger Finger release (09/01/15) L 3rd and 4th finger Dr Castellon Tobacco Smoking/Tobacco Use Status: Former Tobacco Use Alcohol Alcohol Intake: current Alcohol intake frequency: holidays/special occasions only Substance Use Substance use: Never Substance use type: does not use Vital Signs and Lab Results Vital Signs Most Recent Vital Signs in EMR: Most Recent Vital Signs Temp Pulse Resp BP Pulse Ox 36.7 C 87 16 97/66 L 97 08/17/21 06:26 08/17/21 06:26 08/17/21 06:26 08/17/21 06:26 08/17/21 06:26 Lab Results Blood Type / Crossmatch: Patient ABO/Rh A Positive 08/16/21 09:04 08/16/21 Antibody Screen NEGATIVE 08/16/21 09:04 08/16/21 Complete Blood Count: White Blood Count 7.52 10^3/uL (4.4-10.8) 08/16/21 09:04 08/16/21 Red Blood Count 4.81 10^6/uL (4.36-5.78) 08/16/21 09:04 08/16/21 Hemoglobin 15.1 g/dL (13.5-17.5) 08/16/21 09:04 08/16/21 Hematocrit 44.9 % (40.0-50.0) 08/16/21 09:04 08/16/21 Platelet Count 218 10^3/uL (130-400) 08/16/21 09:04 08/16/21 Complete Metabolic Panel: Sodium Level 141 mmol/L (136-145) 08/16/21 09:04 08/16/21 Potassium Level 3.9 mmol/L (3.5-5.1) 08/16/21 09:04 08/16/21 Chloride Level 101 mmol/L (98-107) 08/16/21 09:04 08/16/21 Carbon Dioxide Level 31.7 mmol/L (21.0-32.0) 08/16/21 09:04 08/16/21 Blood Urea Nitrogen 21 mg/dL (7-18) H 08/16/21 09:04 08/16/21 Creatinine 1.0 mg/dL (0.70-1.30) 08/16/21 09:04 08/16/21 Estimated GFR/1.73 m2 >= 60.00 (mL/min/1.73m2) 08/16/21 09:04 08/16/21 Calcium Level 9.7 mg/dL (8.5-10.1) 08/16/21 09:04 08/16/21 Glucose Level 87 mg/dL (74-106) 08/16/21 09:04 08/16/21 Liver Function Panel: No Data to Display Coagulation Panel: No Data to Display Cardiac Panel: No Data to Display Arterial Blood Gas: No Data to Display Venous Blood Gas: No Data to Display Pancreas Panel: No Data to Display Thyroid Panel: No Data to Display Infectious Disease: Coronavirus (COVID-19)(PCR) Negative (Negative) 08/16/21 09:53 08/16/21 Coronavirus 2019 Source Nasal/Nares 08/16/21 09:53 08/16/21 Blood Cultures: No Data to Display Toxicology Panel: No Data to Display Anesthesia Assessment and Plan Anesthesia History Personal History: No History of Anesthesia Complications Family History: No Family History of Anesthesia Complications Exercise Tolerance Exercise Tolerance: Metabolic Equivalents>4 Pertinent Negatives Pertinent Negatives: No Symptoms of GERD, No Major Cardiovascular Symptoms or Complaints, No Major Pulmonary Symptoms or Complaints and No History of CVA/TIA Cardiac & Pulmonary Exam Cardiac Exam: Normal S1/S2 Heart Sounds Pulmonary Exam: Clear Bilateral Breath Sounds Implantable Cardiac Device Does patient have a Pacemaker or an ICD?: No Airway Exam Known Difficult Airway: No Mallampati Class: 2 Mouth Opening: Normal (> 3cm) Thyromental Distance: Greater than 3 cm Facial Hair: Full Mancuso Neck Range of Motion: Full ROM Neck Circumference: Normal Teeth Condition: Normal Dentition ASA Classification ASA Score: ASA 3 Emergency Case?: No NPO Status NPO Status: NPO Clears >2 hours, Solids >8 hours Anesthesia Plan Resuscitation Status: Full Code Anesthesia Technique: Spinal Anesthesia Airway Planned: Natural Airway Monitors Used: Standard Monitors
[2021-08-17] MEDS: Lactated Ringers 1,000 ML 80 ML IV (06:57)
[2021-08-17] MEDS: ceFAZolin 2 GM/50 ML BAG IVPB (08:06)
--- NOTE | 2021-08-17 09:41 | DI.RAD_ITS ---
Exam(s) XR HIP RT IN OR EXAM: XR HIP RT IN OR CLINICAL HISTORY: OA OF RT HIP TECHNIQUE: 2D and realtime digital imaging was performed. CONTRAST MATERIAL: Refer to procedure report. COMPARISON: No exams were available for comparison FINDINGS: Fluoroscopy was provided for Dr. Yeager during the performance of a right total hip replacement. Please refer to the procedure report for complete details. Ka,r=13.2 mGy IMPRESSION: RADIATION DOSE DELIVERED:
[2021-08-17] MEDS: Bupivacaine 0.25% Pres-Free 30 ML VIAL (09:45)
[2021-08-17] MEDS: Ketorolac 30 MG/ML VIAL (09:45)
--- NOTE | 2021-08-17 11:29 | IN_ITS ---
Date of service: 08/17/21 Time of Service: 11:29 PT Notes Visit Reasons: Right FELICIA Physical Therapy Day Surgery Initial Evaluation Date: 08/17/2021 Referring Doctor: MARCELLE Carvalho PT Orders: PT CONSULT: Status post Ortho surgery Sarbjit Angela MD Precautions: WBAT on right LE with AD. Patient Profile/Admitting Diagnosis: Boo is a 76-year-old male with primary osteoarthritis of the right total hip arthroplasty on postoperative day 0. 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) Asymptomatic, confirmed w/ Holter 2016; Echo 10/25/2017 showing moderate LVH & moderate R atrial dilation (EF 50%) --> beta alicia started GERD (gastroesophageal reflux disease) Hyperlipidemia (07/27/15) IFG (impaired fasting glucose) (06/13/13) Male erectile disorder (01/24/14) Meniere's disease Obesity (BMI 30-39.9) Obstructive sleep apnea (08/25/15) CPAP AHI 45.9; Adrienne Maldonado MD 12/12/19 severe Nupur Calle- CPAP 03/12/20 F/U sleep clinic Spinal stenosis of lumbar region with radiculopathy Synovial cyst of popliteal space [Reyes], right knee Surgical History H/O umbilical hernia repair Open Carpal Tunnel release (09/01/15) L; Dr Castellon Repair of inguinal hernia (07/26/13) right indirect inquinal hernia, Dr. Sarbjit Varner Rotator Cuff Repair (11/29/16) L shoulder. Dr. Yeager [facility]. S/P appendectomy Trigger Finger release (09/01/15) L 3rd and 4th finger Dr Castellon Social History/Home Situation: Lives in a private home with three steps to enter with one rail. Equipment Owned/DME: [employer] Subjective: Agreeable to PT consult. Denies headache, chest pain, and dizziness throughout session. Objective: General Observation: Supine in bed. Mental Status: Alert and oriented x4 Pain: Denies ROM: Right Lower Extremity: Hip flexion WFL. Hip abduction WFL. Knee flexion WFL. Ankle dorsiflexion WFL. Ankle plantarflexion WFL. Left Lower Extremity: Hip flexion WFL. Hip abduction WFL. Knee flexion WFL. Ank le dorsiflexion WFL. Ankle plantarflexion WFL. Strength: Right Lower Extremity: Hip flexors 4/5. Hip abductors 4/5. Knee flexors 5/5. Knee extensors 4/5. Ankle dorsiflexors 5/5. Ankle plantarflexors 5/5. Left Lower Extremity:Hip flexors 5/5. Hip abductors 5/5. Knee flexors 5/5. Knee extensors 5/5. Ankle dorsiflexors 5/5. Ankle plantarflexors 5/5. Sensation: Reports chronic numbness in bilateral soles of feet from previous back surgery Bed Mobility/Transfers: Supine to sit supervision Sit to stand contact-guard assist Stand to sit standby assist Bed to chair standby assist Gait: Instructed patient in level surface ambulation of 100 feet using front wheeled walker with severe gait pattern with report of no pain in right hip. Standby assist provided. Stairs: Tolerated up-and-down 6 x 4 inch steps and 4 x 6 inch steps while holding onto 1 rail requiring standby assist and minimal verbal for safe technique. Balance: Static Sitting: Normal Dynamic Sitting: Normal Static Standing: Fair Dynamic Standing: Fair Special Tests: Mobility Limitations Standardized Measure [facility] AM-PAC 6 clicks Basic Mobility Inpatient Short Form: Raw Score: 22 CMS Score: 21% deficit Informed Consent/Education: Patient instructed in purpose of PT consult. Packet containing FELICIA exercise protocol has been given to patient. Education and training on initial set of exercises that can be done at home have been completed with patient. Assessment: Boo requires the use of a front wheel walker for all mobility ADL performance. Patient presents with clinical signs and symptoms consistent with current/admitting diagnoses that have resulted to mobility limitations, gait instability, generalized weakness, and impairment of motor control as demonstrated by the following impairment level findings: 1. Decreased strength to right hip knee major muscle groups 2. Impaired standing balance Impairments are contributing to the following functional limitations: 1. Inability to safely ambulate without assistive device 2. Increase completion time for mobility ADL performance 3. Increased fall risk Patient is assessed as a 61717 moderate complexity based on the following: History: 76-year-old male with impairment level findings, functional limitations, and past medical history as indicated above Examination: Demonstrable impairment in strength, balance, and mobility level with underlying impairments and functional limitations as documented above Presentation: Evolving Decision Makin moderate complexity Goals: N/A. PT evaluation and 1-2 treatment sessions only for functional mobility training using recommended AD and for HEP instruction. Plan of Care/Treatment Plan: N/A. PT evaluation and 1-2 treatment session only for functional mobility training using recommended AD and for HEP instruction. DISCHARGE RECOMMENDATIONS: [X] Home with no services. Home when medically cleared by orthopedic surgeon with recommendation of outpatient PT services to facilitate return to community ambulation without an assistive device. [] Home with services [specify] [] Home with outpatient PT [] [] SNF for continued rehabilitation [] [] [facility] [] [] SNF versus LTC based on ability to participate and progress [] TREATMENT CODE/TIME: 49603 x 20 minutes, 36254 x 60 minutes beginning at 11:29 AM. Thank you for the opportunity to participate in the care of this patient. Padmini Vidal PT, DPT, CLT [facility] [place], [place]
--- NOTE | 2021-08-17 12:28 | NUR.NOTE ---
Decreased BP, Increased HR. A-fib on monitor. Asymptomatic. Anesthesia called to bedside for stephany;uation. Nursing Note:
[2021-08-17] MEDS: Normal Saline Flush 10 ML SYR IV (13:13)
[2021-08-17] MEDS: Lactated Ringers 1,000 ML 1000 ML IV (13:17)
--- NOTE | 2021-08-17 13:59 | NUR.NOTE ---
Initial 500 ML bolus complete. Orthostatic VS done...positive but asymptomatic. Placed in semirecumbant position in reclyner. 2nd [address] Yeager in.Nursing Note:
--- NOTE | 2021-08-17 15:09 | W.ANESPOSTOP ---
Postoperative Evaluation Date, Time and Location Date Performed: 08/17/21 Time Performed: 15:09 Patient Location: Day Surgery Unit Vital Signs Most Recent Imported Vital Signs: Most Recent Vital Signs Temp Pulse Resp BP Pulse Ox 36.6 C 84 17 120/71 96 08/17/21 12:57 08/17/21 14:28 08/17/21 12:57 08/17/21 14:28 08/17/21 12:57 Pain Score Most Recent Pain Score: Most Recent Pain Score Pain Level 1 08/17/21 12:57 Assessment Mental Status: Awake (Alert & Oriented to Patient Baseline) Airway and Respiratory Function: Patent airway with normal (patient baseline) respiratory exam Cardiovascular Function: Hemodynamically Stable Hydration Status: Adequately Hydrated Nausea & Vomiting: No Nausea or Vomiting Pain: Pain is tolerable per patient Peripheral Nerve Block: Patient did not receive a nerve block Postoperative Comments:: While in DSU, patient was noted to have some hypotension. He does state at home his BP is 120-140 systolic normally but he does have some periods of light headedness at home. He was noted to be orthostatic and was given 2 500ml IVF bolus' with good result. He will be discharged home, encouraged PO fluids, has been instructed to followup with PCP for a-fib/bp optimization as well as call 911 or go to Emergency room if he feels poor tonight, which I do not anticipate. He is on board with plan and wishes to go home.
--- NOTE | 2021-08-17 20:55 | W.PM.OP ---
Date of service: 08/17/21 Time of Service: 09:55 Operative Note Operative Note DATE OF PROCEDURE: 08/17/21 PRE-OP DIAGNOSIS: Right Hip Osteoarthritis POST-OP DIAGNOSIS: same PROCEDURE: Right Anterior Total Hip Arthroplasty SURGEON: Pancho Yeager CONSTRUCTION PLUMBER: [place] ANESTHESIA TYPE: General LMA/ETT Refer to Anesthesia Record ESTIMATED BLOOD LOSS: 500 PATHOLOGY: none sent TOURNIQUET TIME: 0 COMPLICATIONS: None Patient was transported to: PACU Patient's condition: stable Implants: 1. Depuy Burgaw Acetabular Component, 58mm 2. Depuy Acetabular Liner, [id number] 3. Depuy Corail Standard Collared Femoral Stem, Size 15 4. Depuy Altrx Ceramic Femoral Head, Size 36+1.5mm Indications: I have seen Raulito in clinic for symptoms of hip arthritis, confirmed with radiographic findings. He has exhausted nonoperative methods and was having significant limitations in daily function and desired better function and less pain. I discussed the technical details of a hip replacement. I explained the risks of the procedure to include, but not limited to, bleeding, infection, pain, stiffness, fracture, damage to nerves and vessels, damage to muscles and tendons, loosening, instability, leg length inequality, need for repeat procedure, blood clot and cardiopulmonary demise. Despite these risks, Raulito elected to proceed. Findings: There was significant signs of arthritis throughout the hip. Procedure Description: Raulito was greeted in the preoperative holding area where the correct side was identified and marked. The consent was reviewed with the patient and signed. The history and physical was updated. All questions were answered. He was taken back to the operating room. A spinal anesthestic was attempted but unsuccessful so he was induced with a general anesthetic. The feet were wrapped with cast padding and Coban and then placed into the boot liners and then into the boots. Care was taken to protect the skin and make sure the heels were fully down and the boots were stable. The patient was then positioned onto the HANA table. Both legs were held in a neutral position. SCDs were applied. The patient was then slid down onto a peroneal post. Prophylactic antibiotics in the form of Cefazolin were administered. 1g of Tranxemic Acid was given intravenously within 30 minutes of incision. The right leg was then prepped with Chloraprep and draped in a standard fashion. A second prep with Chloraprep was performed prior to placement of a shower-curtain type drape with Iodine impregnated skin protection. A timeout to confirm correct identity, side and site, procedure, allergies, anesthesia, and medical concerns was performed. An obliquely oriented incision was made starting lateral to the ASIS and running distal over the Tensor Fascia Mena (TFL) muscle belly toward the fibular head, approximately 10cm. The skin and soft tissue was dissected sharply, through Trino?s fascia, and to the fascia of the TFL. With the fascia and superior border of the IT band identified, the fascia was incised with a new knife just above any perforators from the IT band. The TFL muscle belly was bluntly dissected away from the fascia and moved laterally. The fat between TFL and rectus was identified to ensure the dissection was not within the TFL. Blunt dissection created space between abductors and the capsule and retractor was placed over the lateral femoral neck. The fibers of the rectus femoris tendon were identified and these were freed from the anterior capsule. A second cobra retractor was placed around the medial femoral neck. The TFL was further retracted laterally to show the deep fascia. Careful dissection through this layer identified three main crossing vessels of the lateral femoral circumflex. These were cauterized in multiple locations and then cut without any noticeable bleeding. The TFL was further released bluntly from the deep fascia to expose anterior hip capsule and fat The Mg orthopaedic retractor was then placed beneath the TFL and against sartorius and medial soft tissues to protect and retract the soft tissues. A T-capsulotomy was then performed starting at the superior lateral acetabulum and moving distally to the intertrochanteric ridge. These capsular flaps were tagged with a No. 1 Ethibond and elevated from within. The capsular flaps were released to the shoulder of the lateral neck and to the lesser trochanter to give excellent visualization of the proximal femur. A neck osteotomy was performed using an oscillating saw based on preoperative templates. This cut started in the shoulder and of the lateral neck and exited medially. The saw was at all times directed medially to avoid injury to the greater trochanter. Gross traction was applied to the leg and the osteotomy opened. The femoral head was removed with a corkscrew, making sure to protect the TFL on its exit. Traction was released after head removal. This was measured on the back table to determine the starting reamer size. Portions of the rectus obscuring visualization were minimally elevated off the superior acetabulum. An anterior retractor was placed over the anterior wall between capsule and labrum and attached to the Gripper retraction system. The femur was rotated to 90 degrees and medial capsule was fully released until the lesser trochanter was palpable and visible; the femur was returned to 30 degrees. A posterior retractor was placed similarly between capsule and labrum. This provided excellent visualization. The contents of the cotyloid fossa were removed with electrocautery and the labrum was removed with a knife. There was a notable floor osteophyte. There was significant chondromalacia of the superior acetabulum. Acetabular reaming began with a 53mm reamer. This first reaming was directed anterior to posterior and medial to get down to the true floor. This was inspected and reamed until the true floor was reached. The anterior retractor was then released and entry and exit was provided by traction on the capsular flaps. I then reamed sequentially up to a 57mm reamer where good fit was obtained. The larger reamers were oriented based on anatomical reference of the anterior and lateral parker to ensure proper abduction and anteversion. Positioning and size was confirmed with the fluoroscopy. A 58mm Depuy Burgaw acetabular component was selected. The deep tissues were irrigated. The acetabular component was then impacted in a position of about 40-45 degrees of abduction and 15-20 degrees of anteversion, using the patient?s anatomy as the ultimate landmark. Fluoroscopy was used to confirm this. There was excellent tanning salon attendant of the acetabular component and the inserting handle was removed. The acetabular liner, Depuy [id number] polyethylene liner, was inserted and lined up with the tines of the acetabular component. There was no soft tissue interposition. The liner was then impacted into position and confirmed to be well-seated. A portion of the fernanda-articular cocktail was then injected around the acetabulum into the capsule and periosteum. This cocktail consisted of 50cc of 0.25% Bupivicaine and 20cc of Exparel and 30mg of Ketorolac. The leg was rotated to 120 degrees. Any remaining medial capsule was released until the lesser trochanter was easily palpable. A retractor was placed medially. The lateral capsule was further released into the shoulder to allow access to the greater trochanter. A Barbosa retractor was placed over the greater trochanter which allowed the trochanter to flip in front of the capsule for excellent exposure. The leg was brought down into maximal extension and 20 degrees of adduction while ensuring there was no impingement on the acetabulum. Any remnant capsule within the trochanter was released. There was excellent access to the proximal femur. The lateral neck remnant was removed with a rongeur. A blunt canal probe was used to identify the canal and trajectory for later broaching. A box osteotome initiated the broach course. A small curved rasp and a curved curette were used to work laterally. Broaching then began with a size 8 Corail broach. This was inserted manually around the trochanter and into the canal before mallet blows. The broach was seated to a few millimeters below the cut level based on the neck cut and the preoperative template. Sequential broaching was continued with the [employer] pneumatic broaching device until a tight fit was obtained with good rotational control of the femur. A trial standard neck was inserted along with a +1.5 trial head. The leg was brought out of extension and adduction and then reduced with traction and internal rotation. The leg was stable anteriorly in a position of 30 degrees of extension and 90 degrees of external rotation. Fluoroscopy was used to ensure there was no fracture and the stem was seated well. Leg lengths were checked with an AP pelvis and pelvic reference points. Equiphon navigation system was used to confirm appropriate positioning and leg length and offset. Once content with the desired offset and leg lengths, the leg was brought back into extension, external rotation and adduction. The periosteum and surrounding tissue was injected with remaining portion of the fernanda-articular cocktail. The proximal femur was irrigated as well as the deep tissues. The Depuy Corail standard collared stem, size 15, was then manually inserted into the proximal femur making sure to control rotation. It was then malleted into position with light blows, giving breaks to allow bone expansion and decrease risk of fracture. The selected Depuy Altrx Ceramic Head, size 36+1.5mm, was then placed onto the clean and dry trunnion and secured with impaction onto the tapered fit. The leg was brought back out of extension and adduction and reduced with traction and internal rotation. Stability was confirmed with no shuck at 90 degrees of external rotation and 30 degrees of extension. No impingement through range of motion arc. Final x-ray images were obtained with fluoroscopy to confirm adequate positioning and no intraoperative fracture. The deep tissues were thoroughly irrigated with Irrisept chlorhexadine solution. The capsule was then reapproximated with the previously placed Ethibond sutures. The TFL fascia was finally closed with a No. 2 Stratafix, barbed suture. Deep tissues were then reapproximated with 0 Vicryl and a running 2-0 Vicryl. The skin was closed with a running 4-0 Monocryl in a subcuticular fashion. This was reinforced with skin glue. A Mepilex silver dressing was applied. At the end of the case, all counts were correct. Don was transferred to the hospital bed without difficulty and suffering no apparent complication. Don has a good prognosis. Physical therapy will start today and without restrictions, weight-bearing as tolerated. Aspirin 81mg BID will be used for DVT prophylaxis.
== END 2021-08-17 15:32 | disposition home or self-care (01) ==
PROVIDERS: PCP Nurse Practitioner Family; Visit Provider Student in an Organized Health Care Education/Training Program
PROC: (CPT 27130; principal; 2021-08-17 07:30)
DX: M16.11 Unilateral primary osteoarthritis, right hip (principal); R73.01 Impaired fasting glucose; G47.33 Obstructive sleep apnea (adult) (pediatric); I49.3 Ventricular premature depolarization; E78.5 Hyperlipidemia, unspecified; K21.9 Gastro-esophageal reflux disease without esophagitis; J45.909 Unspecified asthma, uncomplicated; N40.0 Benign prostatic hyperplasia without lower urinary tract symptoms
CPT/HCPCS: 20985; 27130; C1776; 97162; 97530; 73501; J0690; J1100; J1885; J2001; J2250; J2370; J2405

== ENCOUNTER 2021-08-30 10:13 | Outpatient (CLI) | payer MEDICARE, BC, SELFPAY ==
--- NOTE | 2021-08-30 10:00 | DI.RAD_ITS ---
Exam(s) XR HIP RT COMPLETE AP PELVIS EXAM: XR HIP RT COMPLETE AP PELVIS INDICATION: 1st post op R FELICIA. COMPARISON: CR XR PELVIS AP from 08/10/2021 XR HIP RT IN OR from 08/17/2021 XR HIP RT IN OR from 08/17/2021 TECHNIQUE: 2D digital imaging was performed. Two views. FINDINGS: No change in alignment of hip prosthesis. No surrounding bony lucencies. Nbgl-dl-bgvtoxci degenerat zahraa changes are noted in the left hip. DATA REPOSITORY: RADIATION DOSE DELIVERED:
== END 2021-08-30 10:14 | disposition home or self-care (01) ==
LOC: DIORS 10:13
PROVIDERS: PCP Nurse Practitioner Family; Referring Provider Nurse Practitioner Family; Visit Provider Student in an Organized Health Care Education/Training Program
DX: Z96.641 Presence of right artificial hip joint (principal); Z47.1 Aftercare following joint replacement surgery
CPT/HCPCS: 73502

== ENCOUNTER → 2021-09-27 10:29 | Outpatient (BNVA) | payer MEDICARE, BC, SELFPAY | PROVIDERS: PCP Nurse Practitioner Family; Referring Provider Nurse Practitioner Family; Visit Provider Student in an Organized Health Care Education/Training Program | DX: Z47.1 Aftercare following joint replacement surgery (principal); Z96.641 Presence of right artificial hip joint ==

== ENCOUNTER → 2021-11-09 09:12 | Outpatient (BNVA) | payer MEDICARE, BC, SELFPAY | PROVIDERS: PCP Nurse Practitioner Family; Referring Provider Nurse Practitioner Family; Visit Provider Student in an Organized Health Care Education/Training Program | DX: Z47.1 Aftercare following joint replacement surgery (principal); Z96.641 Presence of right artificial hip joint ==

== ENCOUNTER → 2021-11-22 08:20 | Outpatient (BNVA) | payer MEDICARE, BC, SELFPAY | PROVIDERS: PCP Nurse Practitioner Family; Visit Provider Nurse Practitioner Gerontology | DX: N40.1 Benign prostatic hyperplasia with lower urinary tract symptoms (principal); R35.1 Nocturia | CPT/HCPCS: 36415; 99213 ==

== ENCOUNTER 2021-11-22 09:44 | Outpatient (REF) | payer MEDICARE, BC, SELFPAY ==
[2021-11-23 17:23] LABS: PSA, Screening 1.3 ng/mL (0.0-6.5)
== END 2021-11-22 09:45 | disposition home or self-care (01) ==
LOC: LBN 09:44
PROVIDERS: PCP Nurse Practitioner Family; Visit Provider Nurse Practitioner Gerontology
DX: N40.1 Benign prostatic hyperplasia with lower urinary tract symptoms (principal); Z12.5 Encounter for screening for malignant neoplasm of prostate
CPT/HCPCS: 84153

== ENCOUNTER → 2022-03-09 03:06 | Outpatient (CLI) | payer MEDICARE, BC, SELFPAY ==
--- NOTE | 2022-03-09 14:06 | DI.US_ITS ---
APPROVED REPORT EXAM: Comprehensive 2D, Doppler, and color-flow Echocardiogram Patient Location: Out-Patient Data Integrity Consultant: Ling Eli RDCS (AE) Indications: Ascending aorta dilation, HTN Other Information Study Quality: Adequate Conclusion Normal left ventricular wall thickness and chamber size. Estimated ejection fraction is 55 to 60%. Wall motion is normal The right atrium and right ventricle are mildly dilated. Right ventricular systolic function appears normal Left atrium is normal in size Aortic valve is sclerotic and probably trileaflet with trace regurgitation Mitral annular calcification. Mild mitral regurgitation Normal tricuspid valve with trace regurgitation. Estimated right ventricular systolic pressure is 28 mmHg Dilated ascending aorta measuring 4.12 cm Wall motion Left Ventricle The left ventricle is normal size. The left ventricular systolic function is normal. The left ventric ular ejection fraction is within the normal range. There is normal left ventricular wall thickness. T here is normal LV segmental wall motion. There is no ventricular septal defect visualized. LVEF is 58 %. Right Ventricle Right ventricle is mildly dilated. The right ventricular systolic function is normal. The RVSP is 28. 1mmHg. Atria The left atrium size is normal. Right atrium is mildly dilated. The interatrial septum is intact with no evidence for an atrial septal defect. Aortic Valve The Aortic valve is sclerotic. Aortic valve is probably trileaflet. There is no aortic valvular steno sis. Trace aortic regurgitation. Mitral Valve Mild mitral annular calcification. No evidence of mitral valve stenosis. Mild mitral regurgitation. Tricuspid Valve The tricuspid valve is normal in structure. There is no tricuspid valve stenosis. Trace tricuspid reg urgitation. Pulmonic Valve The pulmonary valve is normal in structure. There is no pulmonic valvular stenosis. There is no pulmo melissa valvular regurgitation. Great Vessels The aortic root is normal in size. The ascending aorta is moderately dilated.4.12 cm Aortic arch is n ot well visualized. IVC is normal in size and collapses >50% with inspiration. Pericardium There is no pericardial effusion. 2D Dimensions IVSD d PLAX 1.02 cm M: 0.6-1.2 LV Vol A2C d MOD 94.5 mL LVPW d PLAX 1.02 cm M: 0.6 - 1.2 LV Vol A4C d MOD 110.9 mL LVID d PLAX 5.34 cm M: 4.2 - 5.8 LA vol/ BSA A2C s A-L 24.0 mL/m2 LVDs 3.50 cm M: 2.5 - 4.0 LA vol/ BSA A4C s A-L 32.8 mL/m2 Ao Root d 2.97 cm M: 3.1 - 3.7 LA Vol/ BSA Biplane s A-L 29.2 mL/m2 RA Area A4C 29.71 cm2 LA Area A4C s MOD 22.75 cm2 RA Vol/ BSA A4C s A-L 49.3 mL/m2 LA Area A2C s MOD 18.75 cm2 Ao Asc Diam d 4.12 cm M: 2.6 - 3.4 LV EF A4C MOD 57.8 % LV EF Teichholz 61.9 % LV EF A2C MOD 57.3 % LVEF (Gama's) 57.64 % M: 52 - 72 LV EF Biplane MOD 57.6 % LV Volume 75.46 mL M: 62 - 150 SV 59.97 mL LV Volume Index 33.99 mL/m2 M: 34 - 74 SV Index 27.03 mL/m2 LV Vol Biplane MOD 104.0 mL FS 33.55 % M-Mode TAPSE 1.92 cm (M/F) >1.7 LV Diastology MV E Vmax 0.86 (0.4-1.3 m/s) Aortic Valve LVOT Area 3.21 cm2 AoV Area Vmax 2.34 cm2 LVOT Vmax 1.12 m/s AoV Area/ BSA (Vmax) 1.05 cm2/m2 LVOT Mean Chandu. 0.80 m/s TERESA Mean Chandu. 2.22 cm2 LVOT Peak Grad 5.0 mmHg TERESA Mean Chandu. Index 1.00 cm2/m2 LVOT Mean Grad 3.0 mmHg AR DT 1653 msec LVOT VTI 0.217 m AR PHT 479 msec LVOT Diam s 2.00 cm AoV Vmax 1.54 m/s Velocity Ratio 0.72 AoV Mean Chandu. 1.16 m/s AoV Peak Grad 9.4 mmHg LVOT SV 69.71 mL AoV Mean Grad 5.8 mmHg AoV VTI 0.307 m AoV Area VTI 2.27 cm2 AoV Area/ BSA (VTI) 1.02 cm/m2 Mitral Valve MV DT 267 (160-240 msec) MR Vmax 4.33 m/s MV PHT 77 msec MR VTI 1.374 m MV Area PHT 2.84 cm2 MR Peak Grad 74.9 mmHg MV VTI 0.267 m MR Mean Grad 52.3 mmHg MV VTI Annulus 0.268 m MV Area VTI 2.61 (4.0-6.0 cm2) Pulmonary Valve PV Vmax 1.14 (0.5-1.5 m/s) RVOT Peak Gr. 1.56 mmHg PV Peak Grad 5.2 mmHg RVOT Mean Gr. 0.65 mmHg PV Mean Grad 3.3 mmHg RVOT VTI 0.136 m PV VTI 0.260 m RVOT Vmax 0.62 m/s Tricuspid Valve TR Peak Grad 25.1 mmHg TR Vmax 2.51 m/s RA Pressure 3.00 mmHg RVSP (TR) 28.1 mmHg
== END ==
PROVIDERS: PCP Nurse Practitioner Family; Visit Provider Internal Medicine Cardiovascular Disease
DX: I10 Essential (primary) hypertension (principal); I77.819 Aortic ectasia, unspecified site
CPT/HCPCS: 93306

== ENCOUNTER → 2022-03-10 11:04 | Outpatient (BNVA) | payer MEDICARE, BC, SELFPAY | PROVIDERS: PCP Nurse Practitioner Family; Visit Provider Internal Medicine Cardiovascular Disease | DX: I77.810 Thoracic aortic ectasia (principal); I10 Essential (primary) hypertension; G47.33 Obstructive sleep apnea (adult) (pediatric) | CPT/HCPCS: 99214; 99213 ==

== ENCOUNTER → 2022-04-15 08:16 | Outpatient (BNVA) | payer MEDICARE, BC, SELFPAY | PROVIDERS: PCP Nurse Practitioner Family; Referring Provider Nurse Practitioner Family; Visit Provider Physical Therapy Assistant | DX: Z12.11 Encounter for screening for malignant neoplasm of colon (principal) ==

== ENCOUNTER 2022-04-27 10:22 | Day surgery (SDC) | payer MEDICARE, BC, SELFPAY ==
--- NOTE | 2022-04-27 06:51 | COLE_ITS ---
Colonoscopy Report Date of procedure: 04/27/22 Pre-op diagnosis general: Colon Cancer Screening Post-op diagnosis procedure note: other (polyps) Procedure: Colonoscopy with polyepctomy Surgeon: Pema Talley Anesthesia Type: General:No Airway Estimated blood loss (mL): 5 Pathology: other (descending, sigmoid and rectal polyps) Complications: None Disposition: same day Indications: The patient is here for Colonoscopy pre-op. His last screening was in 2009 and was unremarkable. He has no family history of colon cancer. He has not had any bowel habit changes. -Discussed colonoscopy bowel prep as well as the procedure. Discussed possible complications of the procedure to include bleeding, pain, perforation, missed small lesion/polyp, sore throat, aspiration and adverse reaction to the medications. Questions were answered to patient?s satisfaction. No guarantees we re implied or given.? Prep: Miralax/Dulcolax Procedure Start Time: 12:18 Procedure End Time: 12:43 Retraction Time: 15 minutes Findings: multiple small polyps Procedure Description: After informed consent was obtained the patient was taken to the procedure room and placed in a left decubitous position. Monitors were applied and a time out was done. The patients name, date of , procedure, allergies to medications and metal in their body was reviewed. The patient was then sedated. Once sedated and comfortable a rectal exam was done. External exam was normal. Internal exam revealed a normal sphincter tone and no palpable masses. The prostate felt smooth and slightly enlarged. The scope was then introduced and retro-flexed. No internal hemorrhoids, polyps or masses were identified on retro-flexion. The scope was then advanced to the cecum without difficulty. The ileocecal vlave and appendiceal orifice were identified. The prep was adequate. The scope was then slowly retracted over 15 minutes back into the rectum. Polyps were removed with cold forceps in the descending colon x1, sigmoid colon x3 and rectum. There was no diverticulosis noted. The scope was removed and the patient was woken up and taken back to Same day surgery in stable condition. The patient tolerated the procedure well and there were no immediate complications.
--- NOTE | 2022-04-27 06:54 | W.PM.DSUDISC ---
Discharge Plan Disposition Patient Disposition: HOME Condition: Good Discharge Details Reason For Visit: colonoscopy Attending Provider: Pema Talley Primary Care Provider: Katie Bradford Home Meds and New Rx's Prescriptions: Continued chlorthalidone 25 mg tablet 12.5 mg PO DAILY Qty: 45 3RF atorvastatin [Lipitor] 40 mg tablet 40 mg PO HS Qty: 90 3RF aspirin 81 mg tablet,delayed release (DR/EC) 81 mg PO DAILY Shingrix (PF) 50 mcg/0.5 mL suspension for reconstitution 50 mcg IM .COMPLEX Qty: 1 1RF Label Comments: Per pt noty done yet Rx Instructions: 50 mcg IM administered as a 2-dose series at 0 and 2 to 6 months CPAP 1 ea inhalation HS fluticasone propionate 50 mcg/actuation spray,suspension 1 - 2 spray NS DAILY Qty: 1 12RF Rx Instructions: metoprolol tartrate 25 mg tablet 12.5 mg PO BID Qty: 60 3RF tamsulosin [Flomax] 0.4 mg capsule 0.4 mg PO DAILY Qty: 90 3RF Rx Instructions: pt will call when refill is needed losartan 25 mg tablet 25 mg PO BID Qty: 180 3RF acetaminophen [Tylenol Extra Strength] 500 mg tablet 500 mg PO Q6H PRNQty: 90 0RF Discharge Instructions Instructions: Colorectal Polyps (DC) Additional Instructions: Findings: multiple polyps Follow up: will depend on pathology results Please call if you develop: fevers >101.5 Nausea or Vomiting Abdominal pain that is not transient Rectal bleeding that is more then a tbsp A hard abdomen and inability to pass gas DAY SURGERY UNIT POST ENDOSCOPY INSTRUCTIONS Instructions for everyone who is given Anesthesia: For your safety, please do the following for the next 24 Hours: a. Do not drive or operate dangerous equipment b. Do not drink alcohol beverages or use any recreational drugs for the first 24 hours or while taking pain medications. The medications in your body may have a reaction that can be dangerous. c. Do not make any important decisions or sign any important papers 1. Generally there are no restrictions on your activity after a day or so has gone by, but you may feel a bit fatigued for a few days. 2. After you arrive home you may have a light meal and return to a normal diet as you can tolerate it without feeling sick to your stomach. 3. After surgery, you may feel pain or discomfort. This should be only transient, but if it persists please contact your doctor. 4. If there are any questions regarding the findings of your procedure, please feel free to contact your doctor. 6. If you are unable to contact your doctor with a problem, contact the hospital at [phone]. 7. Continue all your regular medications unless directed otherwise. I understand the above instructions and have no questions. Signature of Patient or Responsible Adult Escort Date/Time Name of Responsible Adult Escort Signature of Nurse Date/Time Activity:: Activity as Tolerated Diet:: As Tolerated Discharge Orders Discharge Orders: Discharge Order (Routine); Ordered 04/27/22 Ordered By: Pema Talley
[2022-04-27 10:44] VITALS: BP 119/77; PULSE 84; RESP 16; TEMP 37.2; O2SAT 96
[2022-04-27] MEDS: Lactated Ringers 1,000 ML 80 ML IV (11:10)
--- NOTE | 2022-04-27 12:05 | W.ANESPRE ---
General Info Date of Service Date Performed: 04/27/22 Height: 6 ft Weight: 99 kg Body Mass Index (BMI): 29.6 Surgical Procedure: Operation Date: 04/27/22 12:50 Proposed Procedure Side Surgeon tavo Talley MD Meds Allergies and Home Medications Allergies Allergy/AdvReac Type Severity Reaction Status Date / Time No Known Drug Allergies Allergy Verified 04/27/22 10:37 Home Medication Medication Instructions Recorded varicella-zoster glycoE [id number] 50 mcg IM .COMPLEX #1 ea 06/27/18 adj(PF) 50 mcg/0.5 mL IM susp, kit (Shingrix (PF)) CPAP 1 ea inhalation HS 03/12/20 fluticasone propionate 50 1 - 2 spray NS DAILY nasal 10/05/20 mcg/actuation nasal congestion #1 unit spray,suspension metoprolol tartrate 25 mg tablet 12.5 mg PO BID #60 tabs 04/01/21 acetaminophen 500 mg tablet 500 mg PO Q6H PRN #90 tabs 08/17/21 (Tylenol Extra Strength) atorvastatin 40 mg tablet (Lipitor) 40 mg PO HS #90 tab-caps 08/25/21 chlorthalidone 25 mg tablet 12.5 mg PO DAILY #45 tabs 08/25/21 tamsulosin 0.4 mg capsule (Flomax) 0.4 mg PO DAILY #90 tab-caps 12/27/21 losartan 25 mg tablet 25 mg PO BID #180 tab-caps 01/18/22 aspirin 81 mg tablet,delayed 81 mg PO DAILY 04/15/22 release Current Visit Medications: Current Medications Generic Name Dose Route Start Last Admin Trade Name Freq PRN Reason Stop Dose Admin Hyoscyamine Sulfate 0.125 mg 04/27/22 06:55 Hyoscyamine 0.125 Mg Sl/Oral/Chew SL DIRECTED PRN Ringer's Solution 1,000 mls @ 80 mls/hr 04/27/22 06:00 04/27/22 11:10 IV 05/26/22 23:59 80 mls/hr INFUSION JESSE Administration IV Miscellaneous Supplies 1 each 04/27/22 06:00 Iv Access IV 05/26/22 23:59 DIRECTED JESSE Ondansetron HCl 4 mg 04/27/22 06:55 Ondansetron 4 Mg/2 Ml Vial IVP Q4H PRN PRN Nausea / Vomiting Sodium Chloride 0 ml 04/27/22 06:00 Normal Saline Flush 10 Ml Syr IV 05/26/22 23:59 PRN PRN Sodium Chloride 0 ml 04/27/22 06:00 Normal Saline 10 Ml Vial IJ 05/26/22 23:59 DIRECTED PRN Sterile Water 0 ml 04/27/22 06:00 Water,Injection,Sterile 10 Ml Vial IJ 05/26/22 23:59 DIRECTED PRN PFSH Active Problems Active Problems: Problem Status Onset Code Screening for colon cancer Z12.11 Mild dilation of ascending aorta I77.810 Obesity (BMI 30-39.9) E66.9 Asthma J45.909 Obstructive sleep apnea 08/25/15 G47.33 IFG (impaired fasting glucose) 06/13/13 R73.01 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 Medical History Medical History Allergic rhinitis OTC 2nd generation antihistamines & Singulair don't help, Flonase does help Benign nodular prostatic hyperplasia with lower urinary tract symptoms (06/13/13) Benign paroxysmal positional vertigo (01/24/14) ENT Rx meclizine Carpal tunnel syndrome of left wrist (04/02/15) S/p CTS 2014 Chest pain (06/27/13) R/O pericarditis; echo 06/25/13 mild LVH otherwise normal Complete tear of left rotator cuff (02/22/17) Cubital tunnel syndrome on left (04/02/15) Essential hypertension (06/13/13) Amlodipine caused peripheral edema GERD (gastroesophageal reflux disease) Hyperlipidemia (07/27/15) Male erectile disorder (01/24/14) Meniere's disease Spinal stenosis of lumbar region with radiculopathy Synovial cyst of popliteal space [Reyes], right knee Medical History Comments:: hypotension concern regarding his previous hip surgery. reviewed per BB Surgical History Surgical History H/O laminectomy H/O umbilical hernia repair History of total right hip replacement (08/17/21) Open Carpal Tunnel release (09/01/15) L; Dr Castellon Repair of inguinal hernia (07/26/13) right indirect inquinal hernia, Dr. Sarbjit Varner Rotator Cuff Repair (11/29/16) L shoulder. Dr. Yeager [facility]. S/P appendectomy Trigger Finger release (09/01/15) L 3rd and 4th finger Dr Castellon Tobacco Smoking/Tobacco Use Status: Former Tobacco Use Passive smoking exposure: No Alcohol Alcohol Intake: current Alcohol intake frequency: holidays/special occasions only Substance Use Substance use: Never Substance use type: does not use Vital Signs and Lab Results Vital Signs Most Recent Vital Signs in EMR: Most Recent Vital Signs Temp Pulse Resp BP Pulse Ox 37.2 C 84 16 119/77 96 04/27/22 10:44 04/27/22 10:44 04/27/22 10:44 04/27/22 10:44 04/27/22 10:44 Lab Results Blood Type / Crossmatch: No Data to Display Complete Blood Count: No Data to Display Complete Metabolic Panel: No Data to Display Liver Function Panel: No Data to Display Coagulation Panel: No Data to Display Cardiac Panel: No Data to Display Arterial Blood Gas: No Data to Display Venous Blood Gas: No Data to Display Pancreas Panel: No Data to Display Thyroid Panel: No Data to Display Infectious Disease: No Data to Display Blood Cultures: No Data to Display Toxicology Panel: No Data to Display Anesthesia Assessment and Plan Anesthesia History Personal History: No History of Anesthesia Complications Family History: No Family History of Anesthesia Complications Exercise Tolerance Exercise Tolerance: Metabolic Equivalents>4 Pertinent Negatives Pertinent Negatives: No Symptoms of GERD, No Major Cardiovascular Symptoms or Complaints, No Major Pulmonary Symptoms or Complaints and No History of CVA/TIA Cardiac & Pulmonary Exam Cardiac Exam: Normal S1/S2 Heart Sounds Pulmonary Exam: Clear Bilateral Breath Sounds Implantable Cardiac Device Does patient have a Pacemaker or an ICD?: No Airway Exam Known Difficult Airway: No Mallampati Class: 2 Mouth Opening: Normal (> 3cm) Thyromental Distance: Greater than 3 cm Neck Range of Motion: Full ROM Neck Circumference: Normal Teeth Condition: Normal Dentition Airway Comments: Top front teeth chipped ASA Classification ASA Score: ASA 2 Emergency Case?: No NPO Status NPO Status: NPO Clears >2 hours, Solids >8 hours Anesthesia Plan Resuscitation Status: Full Code Anesthesia Technique: General Anesthesia Airway Planned: Natural Airway Monitors Used: Standard Monitors
[2022-04-27 12:06] VITALS: BMI 29.6
--- NOTE | 2022-04-27 12:30 | BOWEL_PTH ---
PATIENT: Boo Wagner LOC: [facility] U#:[id number] AGE/SX: 77/M ROOM: RE04/27/[address]: Pema Talley MD : 1945 BED: DIS: 04/27/2022 SPEC #: [id number] RECD: 04/27/22 16:37 STATUS: POPPY REJaylyn #: [id number] MONIQUE: 04/27/22 12:[address]: Pema Talley DEPT: Surgical Specimen RECD BY: Janeen Parker ENTERED: 04/27/22 16:37 SP TYPE: Bowel OTHR DR: Katie Bradford, [place] Tissues: 1 - BIOPSY BOWEL 2 - BIOPSY BOWEL 3 - BIOPSY BOWEL 4 - BIOPSY BOWEL 5 - BIOPSY BOWEL Procedures: GROSS AND MICRO LEVEL 4 Comments: [id number]
[2022-04-27 12:49] VITALS: BP 105/90; PULSE 90; RESP 20; TEMP 36.2; O2SAT 97
--- NOTE | 2022-04-27 12:50 | W.ANESPOSTOP ---
Postoperative Evaluation Date, Time and Location Date Performed: 04/27/22 Time Performed: 12:50 Patient Location: Day Surgery Unit Vital Signs Most Recent Imported Vital Signs: Most Recent Vital Signs Temp Pulse Resp BP Pulse Ox 37.2 C 84 16 119/77 96 04/27/22 10:44 04/27/22 10:44 04/27/22 10:44 04/27/22 10:44 04/27/22 10:44 Most Recent Manually Entered Vital Signs: Adult Blood Pressure: 105/90 Heart Rate: 86 Respirations: 10 Oxygen Saturation (%): 96 Temperature (C): 36.3 C Pain Score (0-10 Scale): 0 Pain Score Most Recent Pain Score: Most Recent Pain Score Pain Level 0 04/27/22 10:44 Assessment Mental Status: Awake (Alert & Oriented to Patient Baseline) Airway and Respiratory Function: Patent airway with normal (patient baseline) respiratory exam Cardiovascular Function: Hemodynamically Stable Hydration Status: Adequately Hydrated Nausea & Vomiting: No Nausea or Vomiting Pain: Pt. Denies Any Pain Peripheral Nerve Block: Patient did not receive a nerve block
[2022-04-27 12:51] VITALS: BP 105/90; PULSE 86; RESP 10; TEMPC 36.3; O2SAT 96
[2022-04-27 13:19] VITALS: BP 110/75; PULSE 77; RESP 19; TEMP 36.7; O2SAT 96
== END 2022-04-27 10:23 | disposition home or self-care (01) ==
PROVIDERS: PCP Nurse Practitioner Family; Visit Provider Surgery
PROC: 0DJD8ZZ Inspection of Lower Intestinal Tract, Via Natural or Artificial Opening Endoscopic (ICD-10-PCS; CPT 45378; principal; 2022-04-27 12:45)
DX: Z12.11 Encounter for screening for malignant neoplasm of colon (principal); K63.5 Polyp of colon; K62.1 Rectal polyp
CPT/HCPCS: 45380; 88305

== ENCOUNTER → 2022-05-16 15:15 | Outpatient (BNVA) | payer MEDICARE, BC, SELFPAY | PROVIDERS: PCP Nurse Practitioner Family; Referring Provider Nurse Practitioner Family; Visit Provider Nurse Practitioner Gerontology | DX: R35.1 Nocturia (principal); R35.0 Frequency of micturition; R39.15 Urgency of urination; N40.1 Benign prostatic hyperplasia with lower urinary tract symptoms | CPT/HCPCS: 51798; 99213 ==

== ENCOUNTER 2022-08-22 09:55 | Outpatient (CLI) | payer MEDICARE, BC, SELFPAY ==
--- NOTE | 2022-08-22 09:21 | DI.RAD_ITS ---
Exam(s) XR HIP RT COMPLETE AP PELVIS EXAM: XR HIP RT COMPLETE AP PELVIS INDICATION: annual f/u R FELICIA. COMPARISON: CR XR HIP RT COMPLETE AP PELVIS from 08/30/2021 TECHNIQUE: 2D digital imaging was performed. Two views. FINDINGS: There has been no change in the alignment of the right hip prosthesis or appearance of the surroundin g bone. There is stable yovt-lk-npwzexws degenerative changes of the right hip. DATA REPOSITORY: RADIATION DOSE DELIVERED:
--- NOTE | 2022-08-22 09:45 | DI.RAD_ITS ---
Exam(s) XR SHOULDER RT COMPLETE 2+V EXAM: XR SHOULDER RT COMPLETE 2+V CLINICAL HISTORY: R shoulder pain. TECHNIQUE: 2D digital imaging was performed. Three views. COMPARISON: MR MRI - L UPPER JOINT WO CONT from 11/10/2016 FINDINGS: BONES: No acute fracture is present. No bony destructive lesion is seen. There is spurring at the gr eater and lesser tuberosities. JOINTS: No dislocation present. Glenohumeral joint space is maintained. There is mild spurring at t he inferior glenoid. There is mild spurring of the AC joint. SOFT TISSUE: Normal. IMPRESSION: Urpn-be-pvrxpgyp degenerative changes. DATA REPOSITORY: RADIATION DOSE DELIVERED:
== END 2022-08-22 09:56 | disposition home or self-care (01) ==
LOC: DIORS 09:56
PROVIDERS: PCP Nurse Practitioner Family; Referring Provider Nurse Practitioner Family; Visit Provider Student in an Organized Health Care Education/Training Program
DX: M19.211 Secondary osteoarthritis, right shoulder; M16.12 Unilateral primary osteoarthritis, left hip; Z96.641 Presence of right artificial hip joint
CPT/HCPCS: 20610; 73030; 73502; J1040

== ENCOUNTER 2022-09-12 04:21 | Outpatient (CLI) | payer MEDICARE, BC, SELFPAY ==
[2022-09-12 13:42] LABS: Hemoglobin A1C 5.5 % (<5.7)
[2022-09-12 14:19] LABS: ALT 48 U/L (16-63); AST 41 U/L (15-37); Albumin 3.9 g/dL (3.4-5.0); Alkaline Phosphatase 109 U/L (46-116); Anion Gap 5.9 mmol/L (3-11); BUN 31 mg/dL (7-18); Bilirubin, Total 0.6 mg/dL (0.2-1.0); CO2 33.1 mmol/L (21.0-32.0); CREATININE 1.2 mg/dL (0.70-1.30); Calcium 9.3 mg/dL (8.5-10.1); Calculated LDL 69 mg/dL (<100); Chloride 102 mmol/L (98-107); Cholesterol 149 mg/dL (<200); Estimated GFR 61.52 (mL/min/1.73m2); Glucose 98 mg/dL (74-106); HDL Cholesterol 72 mg/dL (40-60); Magnesium 1.9 mg/dL (1.8-2.4); Potassium 4.5 mmol/L (3.5-5.1); Sodium 141 mmol/L (136-145); Total Protein 7.3 g/dL (6.4-8.2); Triglyceride 42 mg/dL (<150); Vitamin B12 272 pg/mL (193-986)
[2022-09-13 14:46] LABS: Albumin g/dL 4.2 g/dL (3.6-5.2)
== END 2022-09-12 04:22 | disposition home or self-care (01) ==
LOC: LBO 04:22
PROVIDERS: PCP Nurse Practitioner Family; Visit Provider Nurse Practitioner Family
DX: I10 Essential (primary) hypertension (principal); E78.5 Hyperlipidemia, unspecified; E55.9 Vitamin D deficiency, unspecified; R73.01 Impaired fasting glucose; R20.2 Paresthesia of skin
CPT/HCPCS: 36415; 80053; 80061; 82306; 82607; 83036; 83735; 84165

== ENCOUNTER 2022-11-07 02:56 | Outpatient (CLI) | payer MEDICARE, BC, SELFPAY ==
[2022-11-07 19:17] LABS: PSA, Diagnostic 1.4 ng/mL (<=6.5)
== END 2022-11-07 02:57 | disposition home or self-care (01) ==
LOC: LBO 02:57
PROVIDERS: PCP Nurse Practitioner Family; Visit Provider Nurse Practitioner Gerontology
DX: N40.1 Benign prostatic hyperplasia with lower urinary tract symptoms (principal)
CPT/HCPCS: 36415; 84153

== ENCOUNTER → 2022-11-14 14:20 | Outpatient (BNVA) | payer MEDICARE, BC, SELFPAY | PROVIDERS: PCP Nurse Practitioner Family; Referring Provider Nurse Practitioner Family; Visit Provider Nurse Practitioner Gerontology | DX: R39.89 Other symptoms and signs involving the genitourinary system (principal); N40.1 Benign prostatic hyperplasia with lower urinary tract symptoms | CPT/HCPCS: 51798; 99213 ==

== ENCOUNTER 2022-12-14 02:40 | Outpatient (CLI) | payer MEDICARE, BC, SELFPAY ==
[2022-12-14 07:08] LABS: Abs Immature Grans 0.04 10^3/uL (0.0-0.06); Absolute Basophil Count 0.08 10^3/uL (0.0-0.2); Absolute Eosinophil Count 0.42 10^3/uL (0.0-0.7); Absolute Lymphocyte Count 1.24 10^3/uL (1.2-3.4); Absolute Monocyte Count 0.48 10^3/uL (0.1-0.8); Absolute Neutrophil Count 3.87 10^3/uL (1.2-6.7); Basophils % 1.3; Eosinophils % 6.9; HCT 45.1 % (40.0-50.0); HGB 14.8 g/dL (13.5-17.5); Immature Grans % 0.7; Lymphocytes % 20.2; MCH 31.9 pg (27.0-33.0); MCHC 32.8 % (32.0-36.0); MCV 97 fL (80-95); MPV 9.7 fL (8.0-11.0); Monocytes % 7.8; Neutrophils % 63.1; Platelet Count 160 10^3/uL (130-400); RBC 4.64 10^6/uL (4.36-5.78); RDW 12.1 % (11.8-14.1); RDW-SD 43.6 fL; WBC 6.13 10^3/uL (4.4-10.8)
[2022-12-14 09:05] LABS: ALT 33 U/L (16-63); AST 32 U/L (15-37); Albumin 3.7 g/dL (3.4-5.0); Alkaline Phosphatase 109 U/L (46-116); Bilirubin, Direct 0.2 mg/dL (0.0-0.2); Bilirubin, Total 0.8 mg/dL (0.2-1.0); Total Protein 7.2 g/dL (6.4-8.2)
[2022-12-14 09:16] LABS: Vitamin D 25 Total 23.6 ng/mL (30-100)
[2022-12-14 12:11] LABS: Vitamin B12 747 pg/mL (193-986)
== END 2022-12-14 02:41 | disposition home or self-care (01) ==
LOC: LBO 02:40
PROVIDERS: PCP Nurse Practitioner Family; Visit Provider Nurse Practitioner Family
DX: R20.2 Paresthesia of skin (principal); R25.2 Cramp and spasm; E55.9 Vitamin D deficiency, unspecified; R79.89 Other specified abnormal findings of blood chemistry; M54.16 Radiculopathy, lumbar region; M48.061 Spinal stenosis, lumbar region without neurogenic claudication; R20.0 Anesthesia of skin
CPT/HCPCS: 36415; 80076; 82306; 82607; 85025

== ENCOUNTER 2023-01-10 01:52 | Outpatient (CLI) | payer MEDICARE, BC, SELFPAY ==
--- NOTE | 2023-01-10 08:00 | DI.MRI_ITS ---
Exam(s) MR LUMBAR SPINE WO EXAM: MR LUMBAR SPINE WO CLINICAL HISTORY: assess SPINAL stenosis,F/U 07/10/20,NUMBNESS FEET,R20.0,M48.061,M54.16. TECHNIQUE: Multiplanar multisequence MRI of the Lumbar spine was performed. COMPARISON: MR MR LUMBAR SPINE WO from 07/10/2020 CR XR SHOULDER RT COMPLETE 2+V from 08/22/2022 FINDINGS: Bones: The last intervertebral disc space is designated the L5/S1 level for the numbering purpose of this examination. The vertebral body heights are well maintained. Mild degenerative levo scoliosis. The marrow signal characteristics are unremarkable. Cord: The conus tip ends at the T12 level. It is of normal size and signal intensity. Multilevel loss of disc height, prominent endplate osteophytes and disc bulging from T12-L1 through L 4-5.. Facet degenerative changes also present at these levels. . T12-L1: Mild central canal stenosis mild right neural foraminal narrowing L1-2: Slight central canal stenosis mild left and moderate right neural foraminal narrowing. L2-3: Yzly-ym-gbsdbkan central canal stenosis. Moderate bilateral neural foraminal narrowing. L3-4: Severe bilateral neural foraminal narrowing. No significant central canal stenosis. Laminecto my defect. L4-5: Moderate central canal stenosis and severe bilateral neural foraminal narrowing. L5-S1 disc height is maintained. Mild disc bulging. Facet degenerative changes. Mild central canal stenosis mild left neural foraminal narrowing. The visualized SI joints and sacrum are well maintained. Soft tissues: The paraspinal soft tissues are unremarkable. IMPRESSION: Extensive degenerative disc changes and facet degenerative changes. Multilevel neural foraminal narr owing, most severe on the right at L3-4. Findings have slightly progressed from prior. Postsurgical changes at L3-4 with improvement in degree of central canal stenosis. Stable moderate central canal stenosis at L4-5. Mild central canal stenosis at other levels. DATA REPOSITORY:
== END 2023-01-10 02:12 ==
LOC: DI 01:52
PROVIDERS: PCP Nurse Practitioner Family; Visit Provider Nurse Practitioner Family
DX: M48.061 Spinal stenosis, lumbar region without neurogenic claudication (principal); R20.0 Anesthesia of skin; M51.17 Intervertebral disc disorders with radiculopathy, lumbosacral region; M47.27 Other spondylosis with radiculopathy, lumbosacral region; Z98.890 Other specified postprocedural states
CPT/HCPCS: 72148

== ENCOUNTER 2023-02-22 03:22 | Outpatient (CLI) | payer MEDICARE, BC, SELFPAY ==
[2023-02-22 07:36] LABS: Abs Immature Grans 0.05 10^3/uL (0.0-0.06); Absolute Basophil Count 0.06 10^3/uL (0.0-0.2); Absolute Eosinophil Count 0.17 10^3/uL (0.0-0.7); Absolute Monocyte Count 0.48 10^3/uL (0.1-0.8); Absolute Neutrophil Count 3.04 10^3/uL (1.2-6.7); Basophils % 1.3; Eosinophils % 3.5; HCT 44.5 % (40.0-50.0); HGB 14.7 g/dL (13.5-17.5); Lymphocytes % 20.8; MCV 97 fL (80-95); MPV 10.1 fL (8.0-11.0); Neutrophils % 63.4; Platelet Count 146 10^3/uL (130-400); RBC 4.59 10^6/uL (4.36-5.78); RDW-SD 46.6 fL
[2023-02-22 08:20] LABS: Hemoglobin A1C 5.4 % (<5.7)
[2023-02-22 08:28] LABS: ALT 41 U/L (16-63); AST 37 U/L (15-37); Albumin 3.7 g/dL (3.4-5.0); Alkaline Phosphatase 109 U/L (46-116); Anion Gap 7.5 mmol/L (3-11); BUN 17 mg/dL (7-18); Bilirubin, Total 0.6 mg/dL (0.2-1.0); CO2 29.5 mmol/L (21.0-32.0); Calcium 9.2 mg/dL (8.5-10.1); Calculated LDL 59 mg/dL (<100); Chloride 105 mmol/L (98-107); Cholesterol 142 mg/dL (<200); Estimated GFR 76.08 (mL/min/1.73m2); Glucose 142 mg/dL (74-106); HDL Cholesterol 77 mg/dL (40-60); Potassium 3.8 mmol/L (3.5-5.1); Sodium 142 mmol/L (136-145); Total Protein 7.3 g/dL (6.4-8.2); Triglyceride 31 mg/dL (<150); Vitamin B12 744 pg/mL (193-986)
[2023-02-22 08:48] LABS: Vitamin D 25 Total 24.4 ng/mL (30-100)
== END 2023-02-22 03:23 | disposition home or self-care (01) ==
LOC: LBO 03:23
PROVIDERS: PCP Nurse Practitioner Family; Visit Provider Nurse Practitioner Family
DX: E55.9 Vitamin D deficiency, unspecified (principal); E78.5 Hyperlipidemia, unspecified; E53.8 Deficiency of other specified B group vitamins; I10 Essential (primary) hypertension; R73.01 Impaired fasting glucose
CPT/HCPCS: 36415; 80053; 80061; 82306; 82607; 83036; 85025

== ENCOUNTER 2023-03-09 09:11 | Outpatient (CLI) | payer MEDICARE, BC, SELFPAY ==
--- NOTE | 2023-03-09 09:00 | RT.EKG_ITS ---
APPROVED REPORT Exam: Resting ECG Reason for Exam: palpitations Patient Location: O HR:62 bpm ECG Measurements Heart Rate 62 AXIS CA [id number] P [id number] QRSd 101 QRS -33 QT 417 T 17 QTc 424 Conclusion Atrial fibrillation...V-rate 52- 71, irreg A-activity Left axis deviation...QRS axis (-30,-90) Borderline low voltage, extremity leads...all extremity leads <0.6mV
== END 2023-03-09 09:12 | disposition home or self-care (01) ==
LOC: DI.CARD 09:12
PROVIDERS: PCP Nurse Practitioner Family; Visit Provider Internal Medicine Cardiovascular Disease
DX: R00.2 Palpitations (principal)
CPT/HCPCS: 93010

== ENCOUNTER → 2023-03-09 10:41 | Outpatient (BNVA) | payer MEDICARE, BC, SELFPAY | PROVIDERS: PCP Nurse Practitioner Family; Visit Provider Internal Medicine Cardiovascular Disease | DX: I48.91 Unspecified atrial fibrillation (principal); I10 Essential (primary) hypertension; E78.5 Hyperlipidemia, unspecified | CPT/HCPCS: 93005; 99214 ==

== ENCOUNTER 2023-05-02 14:25 | Outpatient (CLI) | payer MEDICARE, BC, SELFPAY ==
[2023-05-02 14:42] VITALS: BP 132/77; PULSE 71; RESP 20; TEMP 36.6; O2SAT 95
--- NOTE | 2023-05-02 15:26 | DI.RAD_ITS ---
Exam(s) XR PAIN CLINIC LUMBAR SP 2V EXAM: XR PAIN CLINIC LUMBAR SP 2V CLINICAL HISTORY: Dx: Lumbar Radiculopathy TECHNIQUE: 2D and realtime digital imaging was performed. CONTRAST MATERIAL: Refer to procedure report. COMPARISON: No exams were available for comparison FINDINGS: Fluoroscopy was provided for Dr. Song during the performance of a spinal epidural steroid injection. Please refer to the procedure report for complete details. Ka,r=16.3 mGy IMPRESSION:
[2023-05-02 15:31] VITALS: BP 148/73; PULSE 86; RESP 17; O2SAT 99
[2023-05-02] MEDS: methylPREDNISolone ACETATE 80 MG/ML VIAL IJ (15:33)
[2023-05-02] MEDS: Omnipaque 240 MG/ML 50 ML BTL IJ (15:34)
--- NOTE | 2023-05-06 14:53 | PDOC.PAIN ---
Date of service: 05/01/23 Time of Service: 15:00 Pain Managment Procedure Note Procedure Note Procedure Note: PROCEDURE NOTE CAUDAL EPIDURAL STEROID INJECTION Date of Service: May 02, 2023 Patient:Boo Up? Provider:? Nathaniel Song DO, MPH Boo Wagner has been referred to the [facility] for caudal epidural steroid injection.? Pre-operative diagnosis: Lumbosacral Radiculopathy Post-operative diagnosis: Same Pre-Procedure Pain: VAS= 6/10. COMMENTS: He was referred directly for this procedure. He has had previous back surgery. 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 I reviewed his symptoms and imaging and feel that he is appropriate for this procedure. Daniawas interviewed and the medical record was reviewed.? There were no medical, pharmacologic, radiographic or other structural contraindications to attempting fluoroscopically guided epidural steroid injection.? Risks and expected side effects as well as potential benefit of the procedure were reviewed with Dania, and the patient's voiced concerns were addressed.? The printed consent form was signed.? Standard time-out procedure was performed. Dania was placed in the prone position on the fluoroscopy table and automated blood pressure cuff and pulse oximeter applied.? The skin entry point for entering/approaching the epidural space by a caudal approach through the sacral hiatus ed identified with surgical skin marking.? Following thorough chlorhexidine preparation of the skin and draping and 1% lidocaine infiltration of the skin entry point and subcutaneous tissues, a 17 gauge Touhy needle was placed under fluoroscopic guidance? into the epidural space. Needle tip placement and depth were aided and confirmed by fluoroscopy in the lateral and AP position. There was no paresthesia or return of blood or CSF through the needle. 1 cc of Omnipaque 240 was injected with clear epidural spread confirmed with fluoroscopy. An Arrow 19G radio-opaque epidural catheter was advanced into the epidural space to the L5-S1 level and 2 cc of Omnipaque 240 was injected with clear epidural spread. 80 mg of Depo-Medrol was? injected. There was no unusual discomfort expressed by Boo. The needle and catheter were then flushed with 1 cc of 1% Lidocaine and they were removed together without difficulty (49 cc of Omnipaque was wasted). Boo was observed and was without hemodynamic, neurologic, or allergic reactions.? Fluoroscopic images were digitally archived. Boo's vital signs were stable throughout the procedure and were as recorded in the docflowsheet by the nursing staff.? If given, dosages of intravenous drugs for anxiolysis and analgesia were documented in MAR. Follow up plans and appointments were discussed with Boo.? Post procedure instruction was given as documented in nursing documentation and having met discharge criteria, [facility]. ? COMMENTS: No apparent complications.? Post-procedure pain: VAS= 0/10. If the patient receives at least 50% improvement in pain and/or function for at least 3 months, this procedure can be repeated. I personally completed the entire procedure. NATHANIEL SONG DO, MPH [employer] - Subspecialty board certification in Pain Medicine [facility]
== END 2023-05-02 14:26 | disposition home or self-care (01) ==
LOC: PC 14:25
PROVIDERS: PCP Nurse Practitioner Family; Visit Provider Preventive Medicine Occupational Medicine
DX: M54.17 Radiculopathy, lumbosacral region (principal); M54.50 Low back pain, unspecified
CPT/HCPCS: 62323; 72100; J1040; Q9967

== ENCOUNTER → 2023-05-23 14:18 | Outpatient (BNVA) | payer MEDICARE, BC, SELFPAY | PROVIDERS: PCP Nurse Practitioner Family; Referring Provider Nurse Practitioner Family; Visit Provider Nurse Practitioner Gerontology | DX: R39.89 Other symptoms and signs involving the genitourinary system (principal); N40.1 Benign prostatic hyperplasia with lower urinary tract symptoms | CPT/HCPCS: 51798; 99213 ==

== ENCOUNTER → 2023-10-23 08:10 | Outpatient (BNVA) | payer MEDICARE, BC, SELFPAY | PROVIDERS: PCP Family Medicine; Referring Provider Nurse Practitioner Family; Visit Provider Student in an Organized Health Care Education/Training Program | DX: M19.211 Secondary osteoarthritis, right shoulder (principal) | CPT/HCPCS: 20610; J1040 ==

== ENCOUNTER 2023-11-21 03:26 | Outpatient (CLI) | payer MEDICARE, BC, SELFPAY ==
[2023-11-21 18:40] LABS: PSA, Diagnostic 1.4 ng/mL (<=6.5)
== END 2023-11-21 03:27 | disposition home or self-care (01) ==
LOC: LBO 03:27
PROVIDERS: PCP Family Medicine; Visit Provider Nurse Practitioner Gerontology
DX: N40.1 Benign prostatic hyperplasia with lower urinary tract symptoms (principal)
CPT/HCPCS: 36415; 84153

== ENCOUNTER → 2023-11-28 15:16 | Outpatient (BNVA) | payer MEDICARE, BC, SELFPAY | PROVIDERS: PCP Family Medicine; Visit Provider Nurse Practitioner Gerontology | DX: R35.0 Frequency of micturition (principal); N40.1 Benign prostatic hyperplasia with lower urinary tract symptoms | CPT/HCPCS: 99213 ==

== ENCOUNTER 2023-12-05 17:29 | Emergency (ER) | payer MEDICARE, BC, SELFPAY ==
[2023-12-05 17:32] VITALS: BP 173/83; PULSE 67; RESP 16; TEMP 37.1; O2SAT 96
--- NOTE | 2023-12-05 18:00 | DI.RAD_ITS ---
Exam(s) XR ELBOW RT COMPLETE EXAM: XR ELBOW RT COMPLETE CLINICAL HISTORY: R elbow pain s/p fall. TECHNIQUE: 2D digital imaging was performed. COMPARISON: No exams were available for comparison FINDINGS: Four views. There is no evidence of acute fracture nor obvious joint effusion. No prominent swelling of the olec ranon bursa. There are multilevel hypertrophic osseous findings. The most prominent is at the level the radial tu berosity. Also off the lateral femoral condyle as well as some calcification in the common extensor tendon at this level, most probably related to lateral epicondylitis.. No significant osseous lesion s. IMPRESSION: Findings as above but no acute fracture evident. DATA REPOSITORY: RADIATION DOSE DELIVERED:
--- NOTE | 2023-12-05 18:00 | DI.RAD_ITS ---
Exam(s) XR SHOULDER RT COMPLETE 2+V EXAM: XR SHOULDER RT COMPLETE 2+V CLINICAL HISTORY: R shoulder pain s/p fall. TECHNIQUE: 2D digital imaging was performed. COMPARISON: CR XR SHOULDER RT COMPLETE 2+V from 08/22/2022 FINDINGS: 3 views No evidence of fracture nor dislocation. Small calcific density seen adjacent to the greater tuberos ity may represent calcific tendinitis. Subacromial space is not diminished. Clavicle unremarkable. IMPRESSION: Mild findings as above. DATA REPOSITORY: RADIATION DOSE DELIVERED:
--- NOTE | 2023-12-05 18:00 | DI.RAD_ITS ---
Exam(s) XR HUMERUS RT EXAM: XR HUMERUS RT CLINICAL HISTORY: upper arm pain s/p fall. TECHNIQUE: 2D digital imaging was performed. COMPARISON: No exams were available for comparison FINDINGS: 3 views No evidence of fracture of the humerus. No dislocation. No osseous lesions. No radiopaque foreign body. IMPRESSION: No acute humerus fracture evident. DATA REPOSITORY: RADIATION DOSE DELIVERED:
--- NOTE | 2023-12-05 18:04 | W.ED.GENAD ---
Discharge Plan Disposition Patient Disposition: Home Condition: Good Discharge Details Clinical Impression: Acute pain of right shoulder Primary Care Provider: Zaki Pantoja ED Provider: Patricia Mario Home Meds and New Rx's Prescriptions: No Action fluticasone propionate 50 mcg/actuation spray,suspension 1 - 2 spray NS DAILY PRN (Reason: nasal congestion) cyanocobalamin (vitamin B-12) 1,000 mcg tablet 1,000 mcg PO DAILY Qty: 90 3RF cholecalciferol (vitamin D3) 25 mcg (1,000 unit) tablet 3,000 unit PO DAILY Qty: 270 3RF CPAP 1 ea inhalation HS tamsulosin [Flomax] 0.4 mg capsule 0.4 mg PO DAILY Qty: 90 3RF Rx Instructions: pt will call when refill is needed losartan 25 mg tablet 25 mg PO BID Qty: 180 3RF apixaban 5 mg tablet 5 mg PO BID Qty: 180 3RF metoprolol tartrate 25 mg tablet 12.5 mg PO BID Qty: 90 3RF atorvastatin [Lipitor] 40 mg tablet 40 mg PO HS Qty: 90 3RF acetaminophen [Tylenol Extra Strength] 500 mg tablet 500 mg PO Q6H PRNQty: 90 0RF Discharge Instructions Instructions: Shoulder Pain (ED) Additional Instructions: Please call Dr Yeager's office first thing in the morning to arrange for evaluation and definitive management of your shoulder pain. I recommend that you use Tylenol, heat/ice, and topical muscle rubs for pain control. Return to emergency care if you develop new arm numbness/weakness or if you are very worried and need to be rechecked again immediately. Referrals: Pancho Yeager MD [ [facility] STAFF PHYSICIAN] - [facility] General Date/Time Provider Initiated Documentation: 12/05/23 17:54. [facility] Narrative: Boo is an 78 year old male on anticoagulation for afib who presents to the emergency department today for evaluation of right shoulder pain. He reports that he was walking in [place] when he slipped on a patch of ice, causing him to land on the ground on his right shoulder/arm. He denies hitting his head, says he has had no neck pain, back pain, nausea/vomiting, dizziness, headache, vision changes. No previous history of injury to this shoulder, he says that he does have arthritis in the shoulder and has had injections by Dr. Yeager. He reports diffuse pain from his right shoulder down to his right forearm. No distal numbness/tingling. He is right-handed. Related Data Home Medications Medication Instructions Recorded Confirmed CPAP 1 ea inhalation HS 03/12/20 12/05/23 acetaminophen 500 mg tablet 500 mg PO Q6H PRN #90 tabs 08/17/21 12/05/23 (Tylenol Extra Strength) fluticasone propionate 50 1 - 2 spray NS DAILY PRN nasal 09/08/22 12/05/23 mcg/actuation nasal congestion spray,suspension cyanocobalamin (vitamin B-12) 1,000 mcg PO DAILY #90 tab-caps 09/21/22 12/05/23 1,000 mcg tablet tamsulosin 0.4 mg capsule (Flomax) 0.4 mg PO DAILY #90 tab-caps 12/22/22 12/05/23 losartan 25 mg tablet 25 mg PO BID #180 tab-caps 01/18/23 12/05/23 cholecalciferol (vitamin D3) 25 3,000 unit PO DAILY #270 tabs 02/22/23 12/05/23 mcg (1,000 unit) tablet apixaban 5 mg tablet 5 mg PO BID #180 tabs 04/06/23 12/05/23 metoprolol tartrate 25 mg tablet 12.5 mg (1/2 x 25 mg) PO BID #90 06/29/23 12/05/23 tabs atorvastatin 40 mg tablet (Lipitor) 40 mg PO HS #90 tab-caps 10/05/23 12/05/23 Previous Rx's Medication Instructions Recorded acetaminophen 500 mg tablet 500 mg PO Q6H PRN #90 tabs 08/17/21 (Tylenol Extra Strength) cyanocobalamin (vitamin B-12) 1,000 mcg PO DAILY #90 tab-caps 09/21/22 1,000 mcg tablet tamsulosin 0.4 mg capsule (Flomax) 0.4 mg PO DAILY #90 tab-caps 12/22/22 losartan 25 mg tablet 25 mg PO BID #180 tab-caps 01/18/23 cholecalciferol (vitamin D3) 25 3,000 unit PO DAILY #270 tabs 02/22/23 mcg (1,000 unit) tablet apixaban 5 mg tablet 5 mg PO BID #180 tabs 04/06/23 metoprolol tartrate 25 mg tablet 12.5 mg (1/2 x 25 mg) PO BID #90 06/29/23 tabs atorvastatin 40 mg tablet (Lipitor) 40 mg PO HS #90 tab-caps 10/05/23 Allergies Allergy/AdvReac Type Severity Reaction Status Date / Time No Known Drug Allergies Allergy Other (See Verified 12/05/23 17:35 Comment) General Stated Complaint: Orthopedic MARISEL: 4 Review of Systems Narrative: see HPI Exam Const General: cooperative, healthy appearing, comfortable and no acute distress Neck Neck: full ROM Chest Chest: normal inspection of the chest, no crepitus and tenderness (mild diffuse tenderness to lower R ribcage) Resp Effort & Inspection: normal respiratory effort and able to speak in complete sentences Extrem General: normal to inspection and capillary refill normal Right upper extremity: shoulder/upper arm Details: tenderness (diffuse) and abnormal ROM (decreased ROM); no swelling Course Vital Signs Vital signs: Vital Signs Temperature 37.1 C 12/05/23 17:32 Pulse 67 12/05/23 17:32 Respiratory Rate 16 12/05/23 17:32 Blood Pressure 173/83 H 12/05/23 17:32 Pulse Oximetry 96 12/05/23 17:32 Temperature 37.1 C 12/05/23 17:32 Temperature Source Temporal Artery Scan 12/05/23 17:32 Pulse 67 12/05/23 17:32 Respiratory Rate 16 12/05/23 17:32 Respiratory Effort Normal 12/05/23 17:44 Blood Pressure 173/83 H 12/05/23 17:32 Pulse Oximetry 96 12/05/23 17:32 Oxygen Delivery Method Room Air 12/05/23 17:32 Oxygen Flow Rate 0 12/05/23 17:32 Pain Level 8 12/05/23 17:44 Medical Decision Making Boo is an 78 year old male on anticoagulation for afib who presents to the emergency department today for evaluation of right shoulder pain. He reports that he was [place] when he slipped on a patch of ice, causing him to land on the ground on his right shoulder/arm. He denies hitting his head, says he has had no neck pain, back pain, nausea/vomiting, dizziness, headache, vision changes. No previous history of injury to this shoulder, he says that he does have arthritis in the shoulder and has had injections by Dr. Yeager. He reports diffuse pain from his right shoulder down to his right forearm. No distal numbness/tingling. He is right-handed. Physical exam is remarkable for decreased range of motion to right shoulder, pain elicited with empty can test. Unable to reach shoulder for Apley scratch test. Diffuse tenderness to palpation, especially in the anterior and posterior aspect of the shoulder. No obvious AC joint separation, clavicle deformity, shoulder deformity consistent with dislocation, for point tenderness with palpation along arm. No overlying abrasions/lacerations/skin tears or ecchymosis. +CMS to fingers. Distal pulses intact. Full painless range of motion to neck. Easy work of breathing, in no acute distress. DDx includes but is not limited to fracture, rotator cuff or other injury, AC joint separation, other fracture, other muscular injury. No reported head injury/head strike indicating need for head CT or red flags indicating vascular or other serious complication. Xrays reassuring, no fractures or dislocations noted. Likely meniscal or rotator cuff injury, though other muscular injury or tendinitis also possible. While in the emergency department Boo was given Tylenol for discomfort. Reviewed discharge instructions w patient, including symptomatic mgmt and importanc of f/u with orthopedics for further eval and definitive mgmt. Imaging Data Radiologic Study: Radiologist's impression: XR SHOULDER RT COMPLETE 2+V EXAM: XR SHOULDER RT COMPLETE 2+V CLINICAL HISTORY: R shoulder pain s/p fall. TECHNIQUE: 2D digital imaging was performed. COMPARISON: CR XR SHOULDER RT COMPLETE 2+V from 08/22/2022 FINDINGS: 3 views No evidence of fracture nor dislocation. Small calcific density seen adjacent to the greater tuberosity may represent calcific tendinitis. Subacromial space is not diminished. Clavicle unremarkable. IMPRESSION: Mild findings as above. Radiologic Study #2: Radiologist's impression: Exam(s) XR HUMERUS RT EXAM: XR HUMERUS RT CLINICAL HISTORY: upper arm pain s/p fall. TECHNIQUE: 2D digital imaging was performed. COMPARISON: No exams were available for comparison FINDINGS: 3 views No evidence of fracture of the humerus. No dislocation. No osseous lesions. No radiopaque foreign body. IMPRESSION: No acute humerus fracture evident. Radiologic Study #3: Radiologist's impression: Exam(s) XR ELBOW RT COMPLETE EXAM: XR ELBOW RT COMPLETE CLINICAL HISTORY: R elbow pain s/p fall. TECHNIQUE: 2D digital imaging was performed. COMPARISON: No exams were available for comparison FINDINGS: Four views. There is no evidence of acute fracture nor obvious joint effusion. No prominent swelling of the olecranon bursa. There are multilevel hypertrophic osseous findings. The most prominent is at the level the radial tuberosity. Also off the lateral femoral condyle as well as some calcification in the common extensor tendon at this level, most probably related to lateral epicondylitis.. No significant osseous lesions. IMPRESSION: Findings as above but no acute fracture evident. Quality:SDOH Health Related Social Needs: No Data to Display PFSH All Active Problems (Updated 12/05/23 @ 19:37 by Patricia Darnell) Acute pain of right shoulder (Acute) Peripheral neuropathy (Acute) Atrial fibrillation (Chronic) Numbness of right hand (Acute) Vitamin B12 deficiency (Acute) Vitamin D deficiency (Chronic) Allergic rhinitis (Acute) OTC 2nd generation antihistamines & Singulair don't help, Flonase does help Benign nodular prostatic hyperplasia with lower urinary tract symptoms (Acute 06/13/13) Muscle cramps (Acute) Spinal stenosis of lumbar region with radiculopathy (Acute) Numbness of feet (Acute) Male erectile disorder (Acute 01/24/14) Hyperlipidemia (Acute 07/27/15) Essential hypertension (Chronic 06/13/13) Amlodipine caused peripheral edema History of colon polyps (Acute) Primary osteoarthritis of left hip (Acute) 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) Asymptomatic, confirmed w/ Holter 2016; Echo 10/25/2017 showing moderate LVH & moderate R atrial dilation (EF 50%) --> beta alicia started Medical History Benign paroxysmal positional vertigo (01/24/14) ENT Rx meclizine Carpal tunnel syndrome of left wrist (04/02/15) S/p CTS 2014 Chest pain (06/27/13) R/O pericarditis; echo 06/25/13 mild LVH otherwise normal Complete tear of left rotator cuff (02/22/17) Cubital tunnel syndrome on left (04/02/15) GERD (gastroesophageal reflux disease) Hyperplastic colon polyp Meniere's disease Synovial cyst of popliteal space [Reyes], right knee Tubular adenoma of colon Surgical History H/O laminectomy H/O umbilical hernia repair History of colonoscopy (~04/2022) History of total right hip replacement (08/17/21) Open Carpal Tunnel release (09/01/15) L; Dr Castellon Repair of inguinal hernia (07/26/13) right indirect inquinal hernia, Dr. Sarbjit Varner Rotator Cuff Repair (11/29/16) L shoulder. Dr. Yeager [facility]. S/P appendectomy Trigger Finger release (09/01/15) L 3rd and 4th finger Dr Castellon Family History Father , Cerebral hemorrhage at age 52. Stroke Hemorrhagic Brother , Melanoma at age 63. Diabetes Essential hypertension Cancer Social History Smoking/Tobacco Use Status: Former Tobacco Use Quit Date: 10/09/70 Tobacco: How many years used: 5 Smoking risk assessment performed?: Yes Alcohol Intake: current Alcohol Intake frequency: holidays/special occasions only Drug use: Never Substance use type: does not use Adopted: No Caregiver/Support person: No Foster care: No Household members: significant other Housing: house Number of Children: 3 number of grandchildren: 5 Communication Needs: None Education Level: college Do you need help understanding health information?: Rarely current occupation: Self employed [employer] Pets and animals: No Sexually active: No Do you think of yourself as: straight/heterosexual Current gender identity: male What is your relationship status?: living with partner How often do you talk on the phone with friends or family?: three or more times per week How often do you get together with friends or relatives?: twice per week Do you belong to any clubs or organized social groups?: no Panel score (0-1 are the most socially isolated patients): 2 Duration: < 15 minutes/day Frequency: 1-2 times per week Brooke/Bahai: Jewish Special brooke needs: No Seatbelt use: always Helmet use: No Drive intox or ride w/intox security patrol driver: No Water heater temp set <120 deg: Yes Working smoke detector in home: Yes Fire extinguisher in home: Yes Carbon monox detector in home: Yes Do you feel safe at home: Yes Do you feel safe in your relationship?: Yes
[2023-12-05] MEDS: Acetaminophen 325 MG TAB 650 MG PO (18:09)
--- NOTE | 2023-12-07 13:01 | NUR.NOTE ---
Accessed Pt chart to obtain the information about the ortho referral. Document was faxed to [facility]
== END 2023-12-05 20:09 | disposition home or self-care (01) ==
PROVIDERS: Emergency Provider Nurse Practitioner Family; PCP Family Medicine
DX: M25.511 Pain in right shoulder (principal); I48.91 Unspecified atrial fibrillation; I10 Essential (primary) hypertension; Z79.01 Long term (current) use of anticoagulants; Z87.891 Personal history of nicotine dependence; W00.0XXA Fall on same level due to ice and snow, initial encounter; Y93.01 Activity, walking, marching and hiking; Y92.838 Other recreation area as the place of occurrence of the external cause
CPT/HCPCS: 99283; 73030; 73060; 73080

== ENCOUNTER → 2023-12-27 15:08 | Outpatient (BNVA) | payer MEDICARE, BC, SELFPAY | PROVIDERS: PCP Family Medicine; Referring Provider Family Medicine; Visit Provider Student in an Organized Health Care Education/Training Program | DX: M19.211 Secondary osteoarthritis, right shoulder (principal) | CPT/HCPCS: 99213 ==

== ENCOUNTER → 2024-02-27 13:16 | Outpatient (BNVA) | payer MEDICARE, BC, SELFPAY | PROVIDERS: PCP Family Medicine; Referring Provider Family Medicine; Visit Provider Surgery | DX: D17.22 Benign lipomatous neoplasm of skin and subcutaneous tissue of left arm (principal) | CPT/HCPCS: 99213 ==

== ENCOUNTER → 2024-02-28 03:54 | Outpatient (CLI) | payer MEDICARE, BC, SELFPAY ==
--- NOTE | 2024-02-28 07:30 | DI.US_ITS ---
APPROVED REPORT EXAM: Comprehensive 2D, Doppler, and color-flow Echocardiogram Patient Location: Out-Patient Practice Clinician: Ling Eli RDCS (AE) Indications: Dilated ascending aorta, palpitations, atrial fibrillation Other Information Study Quality: Adequate Conclusion Normal left ventricular wall thickness and chamber size. Ejection fraction is 55%. Wall motion is n ormal Normal right ventricular size and function Both atria are mildly enlarged Aortic valve is sclerotic. There is mild aortic regurgitation. There is no hemodynamically signific ant aortic stenosis Mild to moderate mitral regurgitation Moderate tricuspid regurgitation. Estimated Hg Wall motion Left Ventricle The left ventricle is normal size. The left ventricular systolic function is normal. The left ventric ular ejection fraction is within the normal range. There is normal left ventricular wall thickness. T here is normal LV segmental wall motion. There is no ventricular septal defect visualized. LVEF is 55 %. Right Ventricle The right ventricle is normal size. Right ventricular systolic function is grossly normal. Atria Left atrium is mildly dilated. Right atrium is mildly dilated. The interatrial septum is intact with no evidence for an atrial septal defect. Aortic Valve Aortic valve is calcified. Number of aortic valve leaflets could not be assessed. No hemodynamically significant valvular aortic stenosis. Mild aortic regurgitation. Mitral Valve The mitral valve is normal in structure. No evidence of mitral valve stenosis. Mild to moderate mitr al regurgitation. Tricuspid Valve The tricuspid valve is normal in structure. There is no tricuspid valve stenosis. Moderate tricuspid regurgitation. The RVSP is 36.8 mmHg. Pulmonic Valve Pulmonic valve is not well visualized. There is no pulmonic valvular stenosis. There is no pulmonic v alvular regurgitation. Great Vessels The aortic root is normal in size. The ascending aorta is mild to moderately Aortic arch is not well visualized. dilated. The IVC collapses <50% with inspiration. Pericardium There is no pericardial effusion. 2D Dimensions IVSD d PLAX 1.00 cm M: 0.6-1.2 Ao Root d 3.35 cm M: 3.1 - 3.7 LVPW d PLAX 1.02 cm M: 0.6 - 1.2 Ao Asc Diam d 4.10 cm M: 2.6 - 3.4 LVID d PLAX 4.81 cm M: 4.2 - 5.8 LVDs 3.41 cm M: 2.5 - 4.0 LV EF Teichholz 55.8 % FS 29.10 % LV EDV (Teich) 107.8 mL LV ESV (Teich) 47.7 mL M-Mode TAPSE 2.37 cm (M/F) >1.7 Auto EF LV EDV A4C 137.1 mL LV EDV A2C 146.9 mL LV EDV BP 142.7 mL LV ESV A4C 63.7 mL LV ESV A2C 67.7 mL LV ESV BP 65.2 mL LVEF(%) A4C 53.5 % LVEF(%) A2C 53.9 % LVEF(%) BP 54.3 % LV SV A4C 73.4 ml LV SV A2C 79.2 ml LV SV BP 77.5 ml LV CO A4C 5.2 L/min LV CO A2C 6.4 L/min LV CO BP 5.8 L/min HR A4C 70.59 BPM HR A2C 81.09 BPM LV EDV Index (BP) LA Volume LA Length A4C 6.7 cm LA Length A2C 6.6 cm LA Area A4C s 24.97 cm2 LA Area A2C s 26.87 cm2 LA Vol A4C A-L 78.42 mL LA Vol A2C A-L 93.32 mL LA Vol Biplane A-L 86.7 mL LA Vol/BSA A4C A-L LA Vol/BSA A2C A-L LA Vol/BSA BP A-L 39.1 mL/m2 LA Vol A4C MOD 75.6 mL LA Vol A2C MOD 86.7 mL LA Vol BP MOD 81.8 mL RA Volume RA Area A4C 27.5 cm2 RA ESV A4C (A-L) 96.6mL RA Vol/BSA A4C A-L RA Length A4C 6.8 cm RA ESV A4C (MOD) 93.0mL LV Diastology MV E' medial 0.103 (>0.07 m/s) MV E Vmax 0.93 (0.4-1.3 m/s) MV E/E' MED 9.09 (<14) MV A Vmax 0.40 (0.4-1.3 m/s) MV E' lateral 0.129 (>0.1 m/s) E/A Ratio 2.3 MV E/E' LAT 7.26 (<14) MV E' Average 0.116 m/s MV E/E'(average) 8.08 Aortic Valve AoV Vmax 2.09 m/s LVOT Vmax 0.83 m/s AoV Peak Grad 48.8 mmHg LVOT Peak Grad 2.8 mmHg AoV Area (Vmax) 1.39 cm2 LVOT VTI 0.196 m AoV VTI 0.485 m LVOT Mean Grad 1.8 mmHg AoV Mean Chandu. 1.57 m/s LVOT SV 68.53 mL AoV Mean Grad 11.0 mmHg LVOT Diam s 2.10 cm AoV Area (VTI) 1.41 cm2 AV Regurg Peak Gr. 79.95 mmHg Velocity Ratio 0.40 AR Decel Foster 2.0m/sec2 AR DT 2217 msec AR PHT 643 msec AR Vmax 4.47 m/s Mitral Valve MV DT 191 (160-240 msec) MR Vmax 4.76 m/s MV Vmax TIPS 0.78 m/s MR VTI 1.517 m MV Mean Grad 0.8 (<2mmHg) MR Peak Grad 90.6 mmHg MV VTI 0.274 m MR Mean Grad 64.6 mmHg Pulmonary Valve PV Vmax 0.68 (0.5-1.5 m/s) RVOT Vmax 0.54 m/s PV Peak Grad 1.9 mmHg RVOT Peak Gr. 1.2 mmHg PV Mean Chandu 0.47 m/s RVOT VTI 0.109 m PV Mean Grad 1.0 mmHg RVOT Mean Gr. 0.7 mmHg Tricuspid Valve RA Pressure 8.00 mmHg TR Vmax 2.68 m/s TV S' 0.12 m/s TR Peak Grad 28.7 mmHg RVSP (TR) 36.8 mmHg
== END ==
PROVIDERS: PCP Family Medicine; Visit Provider Internal Medicine Cardiovascular Disease
DX: R00.2 Palpitations (principal); I48.91 Unspecified atrial fibrillation; I77.810 Thoracic aortic ectasia; I51.7 Cardiomegaly; I34.0 Nonrheumatic mitral (valve) insufficiency; I36.1 Nonrheumatic tricuspid (valve) insufficiency
CPT/HCPCS: 93306

== ENCOUNTER → 2024-03-06 14:45 | Outpatient (BNVA) | payer MEDICARE, BC, SELFPAY | PROVIDERS: PCP Family Medicine; Visit Provider Student in an Organized Health Care Education/Training Program | DX: M19.211 Secondary osteoarthritis, right shoulder (principal) | CPT/HCPCS: 99213 ==

== ENCOUNTER → 2024-03-14 10:41 | Outpatient (BNVA) | payer MEDICARE, BC, SELFPAY | PROVIDERS: PCP Family Medicine; Visit Provider Internal Medicine Cardiovascular Disease | DX: I48.91 Unspecified atrial fibrillation (principal); I77.810 Thoracic aortic ectasia | CPT/HCPCS: 99213 ==

== ENCOUNTER → 2024-04-30 14:16 | Outpatient (BNVA) | payer MEDICARE, BC, SELFPAY | PROVIDERS: PCP Family Medicine; Referring Provider Family Medicine; Visit Provider Surgery | DX: D17.1 Benign lipomatous neoplasm of skin and subcutaneous tissue of trunk (principal) | CPT/HCPCS: 20206 ==

== ENCOUNTER 2024-04-30 15:17 | Outpatient (REF) | payer MEDICARE, BC, SELFPAY ==
--- NOTE | 2024-04-30 14:50 | SKI_PTH ---
PATIENT: Boo Wagner LOC: [facility] U#:[id number] AGE/SX: 79/M ROOM: RE04/30/[address]: Monico Paris MD : [id number] BED: DIS: 04/30/2024 SPEC #: [id number] RECD: 04/30/24 18:04 STATUS: POPPY REQ #: [id number] MONIQUE: 04/30/24 14:[address]: Monico Paris DEPT: Surgical Specimen RECD BY: Janeen Parker ENTERED: 04/30/24 18:05 SP TYPE: RUKHSANA SANCHES DR: Zaki Pantoja DO Tissues: 1 - SKIN BIOPSY(SHAVE/PUNCH) Procedures: GROSS AND MICRO LEVEL 4 Comments: [id number]
== END 2024-04-30 15:18 | disposition home or self-care (01) ==
LOC: LBN 15:17
PROVIDERS: PCP Family Medicine; Visit Provider Surgery
DX: D21.9 Benign neoplasm of connective and other soft tissue, unspecified (principal); R22.2 Localized swelling, mass and lump, trunk
CPT/HCPCS: 88305

== ENCOUNTER → 2024-05-14 00:49 | Outpatient (CLI) | payer MEDICARE, BC, SELFPAY ==
--- NOTE | 2024-05-14 13:20 | DI.CT_ITS ---
Exam(s) CT UPPER EXTREMITY RT WO EXAM: CT UPPER EXTREMITY RT WO CLINICAL HISTORY: SURGICAL PLANNING,secondary oa rt shoulder due to rotator cuff,m19.211 TECHNIQUE: Imaging Protocol: Axial computed tomography images with coronal and sagittal reformatted images were created and reviewed. CONTRAST MATERIAL: Intravenous: None COMPARISON: CR XR SHOULDER RT COMPLETE 2+V from 12/05/2023 FINDINGS: AC JOINT: Moderate degenerative changes with a corticated 7 x 5 mm density above the level the articu lar surfaces but intracapsular. There are tiny downgoing osteophytes. No prominent impingement at t his level. GLENOHUMERAL JOINT: There is no evidence of fracture nor dislocation. Tiny 1 mm calcific density is seen in the soft tissues immediately adjacent to the greater tuberosity of the humeral head consisten t with calcific tendinitis. There appears to be some fluid lateral to the humeral head, possibly bobby ment of subdeltoid bursitis. No other calcifications seen in the non diminished subacromial space. There is mild narrowing of the glenohumeral joint space. No osteophytes. No degenerative subarticul ar cysts. No evidence of bony Bankart lesion. The coracoid process appears unremarkable. IMPRESSION: Mild-moderate degenerative changes in the glenohumeral joint. Also mild-moderate degenerative changes in the ipsilateral AC joint. Other findings as above. RADIATION DOSE DELIVERED: Total DLP DATA REPOSITORY: All CT scans at this facility are submitted to the National Radiology Data Registry (NRDR) Dose Index Registry (DIR) with the [employer] (ACR). RADIATION OPTIMIZATION: All CT scans at this facility use at least one of these dose optimization te chniques: automated exposure control; mA and/or kV adjustment per patient size (includes targeted exa ms where dose is matched to clinical indication); or iterative reconstruction.
== END ==
PROVIDERS: PCP Family Medicine; Visit Provider Student in an Organized Health Care Education/Training Program
DX: M19.211 Secondary osteoarthritis, right shoulder (principal); M19.011 Primary osteoarthritis, right shoulder
CPT/HCPCS: 73200

== ENCOUNTER → 2024-05-21 13:16 | Outpatient (BNVA) | payer MEDICARE, BC, SELFPAY | PROVIDERS: PCP Family Medicine; Referring Provider Family Medicine; Visit Provider Student in an Organized Health Care Education/Training Program | DX: M19.211 Secondary osteoarthritis, right shoulder (principal); R06.02 Shortness of breath; G47.33 Obstructive sleep apnea (adult) (pediatric); Z99.89 Dependence on other enabling machines and devices | CPT/HCPCS: 99214 ==

== ENCOUNTER 2024-05-22 03:16 | Outpatient (CLI) | payer MEDICARE, BC, SELFPAY ==
[2024-05-22 18:28] LABS: PSA, Diagnostic 1.3 ng/mL (<=6.5)
== END 2024-05-22 03:17 | disposition home or self-care (01) ==
LOC: LBO 03:16
PROVIDERS: PCP Family Medicine; Visit Provider Nurse Practitioner Gerontology
DX: N40.1 Benign prostatic hyperplasia with lower urinary tract symptoms (principal)
CPT/HCPCS: 36415; 84153

== ENCOUNTER → 2024-05-29 15:21 | Outpatient (BNVA) | payer MEDICARE, BC, SELFPAY | PROVIDERS: PCP Family Medicine; Visit Provider Nurse Practitioner Gerontology | DX: N40.1 Benign prostatic hyperplasia with lower urinary tract symptoms (principal); N42.89 Other specified disorders of prostate | CPT/HCPCS: 51798; 99213 ==

== ENCOUNTER 2024-06-13 05:53 | Day surgery (SDC) | payer MEDICARE, BC, SELFPAY ==
[2024-06-13] VITALS (59 sets, daily range): BP systolic 91–163; BP diastolic 36–104; PULSE 55–94; RESP 13–30; TEMP 36.3–37.1; O2SAT 92–99; BMI 30.3
[2024-06-13] MEDS: Lactated Ringers 1,000 ML 30 ML IV (06:55)
--- NOTE | 2024-06-13 07:01 | ANES.PREOP_ITS ---
General Info Date of Service Date Performed: 06/13/24 Height: 6 ft Weight: 101.5 kg Body Mass Index (BMI): 30.3 Surgical Procedure: Operation Date: 06/13/24 07:40 Proposed Procedure Side Surgeon p Shoulder Reverse Total Arthroplasty, Biceps Tenodesis Right Trey Barraza MD Meds Allergies and Home Medications Allergies Allergy/AdvReac Type Severity Reaction Status Date / Time No Known Drug Allergies Allergy Other (See Verified 06/13/24 06:11 Comment) Home Medication ?Medication ?Instructions ?Recorded CPAP 1 ea inhalation HS 03/12/20 acetaminophen 500 mg tablet 500 mg PO Q6H PRN #90 tabs 08/17/21 (Tylenol Extra Strength) fluticasone propionate 50 1 - 2 spray NS DAILY PRN nasal 09/08/22 mcg/actuation nasal congestion spray,suspension cyanocobalamin (vitamin B-12) 1,000 mcg PO DAILY #90 tab-caps 09/21/22 1,000 mcg tablet cholecalciferol (vitamin D3) 25 3,000 unit PO DAILY #270 tabs 02/22/23 mcg (1,000 unit) tablet metoprolol tartrate 25 mg tablet 12.5 mg (1/2 x 25 mg) PO BID #90 06/29/23 tabs atorvastatin 40 mg tablet (Lipitor) 40 mg PO HS #90 tab-caps 10/05/23 losartan 25 mg tablet 25 mg PO BID #180 tab-caps 01/12/24 tamsulosin 0.4 mg capsule (Flomax) 0.4 mg PO DAILY #90 tab-caps 03/22/24 apixaban 5 mg tablet 5 mg PO BID #180 tabs 04/25/24 Current Visit Medications: Current Medications Generic Name Dose Route Start Last Admin Trade Name Freq PRN Reason Stop Dose Admin Ringer's Solution 1,000 mls @ 30 mls/hr 06/13/24 06:00 IV 07/12/24 23:59 INFUSION JESSE Cefazolin Sodium/Dextrose 2 gm in 50 mls @ 100 mls/hr 06/13/24 06:00 Ancef Duplex IVPB 06/13/24 16:00 PREOP JESSE Tranexamic Acid/Sodium Chloride 1,000 mg in 100 mls @ 600 mls/hr 06/13/24 06:00 IVPB 06/13/24 16:00 PREOP JESSE IV Miscellaneous Supplies 1 each 06/13/24 06:00 Iv Access IV 07/12/24 23:59 DIRECTED JESSE Sodium Chloride 0 ml 06/13/24 06:00 Normal Saline Flush 10 Ml Syr IV 07/12/24 23:59 PRN PRN Sodium Chloride 0 ml 06/13/24 06:00 Normal Saline 10 Ml Vial IJ 07/12/24 23:59 DIRECTED PRN Sterile Water 0 ml 06/13/24 06:00 Water,Injection,Sterile 10 Ml Vial IJ 07/12/24 23:59 DIRECTED PRN PFSH Active Problems Active Problems: Problem Status Onset Code Lipoma Acute D17.9 Peripheral neuropathy Acute G62.9 Atrial fibrillation Chronic I48.91 Numbness of right hand Acute R20.0 Vitamin B12 deficiency Acute E53.8 Vitamin D deficiency Chronic E55.9 Allergic rhinitis Acute J30.9 Benign nodular prostatic hyperplasia with lower urinary tract symptoms Acute 06/13/13 N40.1 Muscle cramps Acute R25.2 Spinal stenosis of lumbar region with radiculopathy Acute M48.061, M54.16 Numbness of feet Acute R20.0 Male erectile disorder Acute 01/24/14 N52.9 Hyperlipidemia Acute 07/27/15 E78.5 Essential hypertension Chronic 06/13/13 I10 History of colon polyps Acute Z86.010 Primary osteoarthritis of left hip Acute M16.12 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 Acute M19.211 Mild dilation of ascending aorta Chronic I77.810 Obesity (BMI 30-39.9) Chronic E66.9 Asthma Chronic J45.909 Obstructive sleep apnea Chronic 08/25/15 G47.33 IFG (impaired fasting glucose) Chronic 06/13/13 R73.01 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 Pt. mentions he is not sure cardiology is not aware of this procedure today Surgical History Surgical History H/O laminectomy H/O umbilical hernia repair History of colonoscopy (~04/2022) History of total right hip replacement (08/17/21) Open Carpal Tunnel release (09/01/15) L; Dr Castellon Repair of inguinal hernia (07/26/13) right indirect inquinal hernia, Dr. Sarbjit Varner Rotator Cuff Repair (11/29/16) L shoulder. Dr. Yeager [facility]. S/P appendectomy Trigger Finger release (09/01/15) L 3rd and 4th finger Dr Castellon Tobacco Smoking/Tobacco Use Status: Former Tobacco Use Passive smoking exposure: Yes (Not very much) Alcohol Alcohol Intake: current Alcohol intake frequency: holidays/special occasions only Alcohol type: beer Substance Use Substance use: Never Substance use type: does not use Details: alcohol: t-3, two beers Vital Signs and Lab Results Vital Signs Most Recent Vital Signs in EMR: Most Recent Vital Signs Temp Pulse Resp BP Pulse Ox 37.0 C 77 18 153/78 H 98 06/13/24 06:20 06/13/24 06:20 06/13/24 06:20 06/13/24 06:20 06/13/24 06:20 Lab Results Blood Type / Crossmatch: No Data to Display Complete Blood Count: No Data to Display Complete Metabolic Panel: No Data to Display Liver Function Panel: No Data to Display Coagulation Panel: No Data to Display Cardiac Panel: No Data to Display Arterial Blood Gas: No Data to Display Venous Blood Gas: No Data to Display Pancreas Panel: No Data to Display Thyroid Panel: No Data to Display Infectious Disease: No Data to Display Blood Cultures: No Data to Display Toxicology Panel: No Data to Display Imaging and Studies Imaging and Studies Study information below may be from another EMR and interpreted by another provider. Please see original notes in EMR for more complete details. EKG Summary: 03/09/23 Conclusion Atrial fibrillation...V-rate 52- 71, irreg A-activity Left axis deviation...QRS axis (-30,-90) Borderline low voltage, extremity leads...all extremity leads <0.6mV Echocardiogram Summary: 02/28/24 Conclusion Normal left ventricular wall thickness and chamber size. Ejection fraction is 55%. Wall motion is normal Normal right ventricular size and function Both atria are mildly enlarged Aortic valve is sclerotic. There is mild aortic regurgitation. There is no hemodynamically significant aortic stenosis Mild to moderate mitral regurgitation Moderate tricuspid regurgitation. Anesthesia Assessment and Plan Anesthesia History Personal History: No History of Anesthesia Complications Family History: No Family History of Anesthesia Complications Exercise Tolerance Exercise Tolerance: Metabolic Equivalents>4 Pertinent Negatives Pertinent Negatives: No Symptoms of GERD, No Major Pulmonary Symptoms or Complaints, No History of CVA/TIA and Other (Atrial Fibrillation on eliquis ) Cardiac & Pulmonary Exam Cardiac Exam: Normal S1/S2 Heart Sounds Pulmonary Exam: Clear Bilateral Breath Sounds Implantable Cardiac Device Does patient have a Pacemaker or an ICD?: No Airway Exam Known Difficult Airway: No Mallampati Class: 2 Mouth Opening: Normal (> 3cm) Thyromental Distance: Greater than 3 cm Neck Range of Motion: Full ROM Neck Circumference: Normal Teeth Condition: Normal Dentition Airway Comments: Top front teeth chipped ASA Classification ASA Score: ASA 3 Emergency Case?: No NPO Status NPO Status: NPO Clears >2 hours, Solids >8 hours Anesthesia Plan Resuscitation Status: Full Code Anesthesia Technique: General Anesthesia Airway Planned: Endotracheal Tube Pain Management: Surgeon and patient request nerve block Monitors Used: Standard Monitors
--- NOTE | 2024-06-13 07:10 | W.PM.DSUDISC ---
Date of service: 06/13/24 Time of Service: 11:00 Discharge Plan Disposition Patient Disposition: Home Condition: Stable Discharge Details Attending Provider: Trey Barraza Primary Care Provider: Zaki Pantoja Home Meds and New Rx's Prescriptions: New tramadol 50 mg tablet 50 mg PO Q8H PRN (Reason: severe pain) Qty: 12 0RF Continued fluticasone propionate 50 mcg/actuation spray,suspension 1 - 2 spray NS DAILY PRN (Reason: nasal congestion) cyanocobalamin (vitamin B-12) 1,000 mcg tablet 1,000 mcg PO DAILY Qty: 90 3RF cholecalciferol (vitamin D3) 25 mcg (1,000 unit) tablet 3,000 unit PO DAILY Qty: 270 3RF CPAP 1 ea inhalation HS metoprolol tartrate 25 mg tablet 12.5 mg PO BID Qty: 90 3RF atorvastatin [Lipitor] 40 mg tablet 40 mg PO HS Qty: 90 3RF losartan 25 mg tablet 25 mg PO BID Qty: 180 3RF tamsulosin [Flomax] 0.4 mg capsule 0.4 mg PO DAILY Qty: 90 3RF Rx Instructions: pt will call when refill is needed apixaban 5 mg tablet 5 mg PO BID Qty: 180 3RF acetaminophen [Tylenol Extra Strength] 500 mg tablet 500 mg PO Q6H PRNQty: 90 0RF Discharge Instructions Additional Instructions: Surgery: Right reverse total shoulder arthroplasty (constrained liner) with biceps tenodesis Activity: Do not lift anything heavier than a coffee. You should keep your arm at your side in a relatively neutral position at all times except for gentle range of motion exercises, physical therapy, and essential activities. You should use the sling whenever you are out of the house. At home it is best to remove the sling and rest the arm on a pillow at your side or support the operative side with your other hand. A physical therapy prescription will be sent electronically to start in about 3 weeks. STANDARD Reverse TSA Protocol. Prescriptions: Resume apixaban/Eliquis tomorrow morning Tramadol 50 mg take 1 every 8 hours as needed for severe pain You may use [id number] Tylenol (acetaminophen) as needed for mild pain. These pain medications may be taken together or separately as needed. Also, recommend Colace (docusate) as a stool softener as surgery and pain medicine cause constipation. You may try [id number] diphenhydramine (Benadryl) 25-50 mg nightly as a sleep aid Dressings: Leave dressing in place until follow-up. Keep clean and dry at all times. No showers please. You may take off the leg compression stockings this evening at home. You may also leave them on a few days longer if you have a history of leg swelling or edema. Let us know right away if you develop any redness, drainage, fevers, chest pain, or trouble breathing. Do not drink alcohol or drive for at least 24 hours after anesthesia. Please call the office during business hours with any questions or concerns. 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
--- NOTE | 2024-06-13 07:20 | W.ANESNERVE ---
Nerve Block Single Injection Procedure Date and Time Date Performed: 06/13/24 Procedure Start: 07:20 Location Where Procedure Performed Procedure Location: Day Surgery Unit Reason Performed: Postoperative Analgesia Requesting Provider: Trey Barraza Timeout Performed Timeout Performed: Yes Monitoring Used ECG, Blood Pressure and SpO2 Sterility Sterility: Hand Hygiene, Surgical Cap, Surgical Mask, Sterile Gloves and Chlorhexidine Sedation Given During Procedure Sedation Given (Indicate Dose Given): No Sedation given Patient Mental Status Patient Mental Status: Awake Nerve Block 1st Nerve Block: Laterality: Right Block Type: Interscalene Ultrasound Image Saved?: Yes Needle / Catheter Used: 80mm SonoPlex II Local Anesthetic Bolus (Indicate Dose Given): Lidocaine used for local infiltration of skin, Injected in 3-5ml increments after negative blood aspiration, Bupivacaine 0.5% Dose:: 10ml and Exparel Dose:: 10ml Additives (Indicate Dose Given): None Ultrasound: Sterile probe cover and gel used Nerve Stimulator: Supplement to Ultrasound use Paresthesia: None Procedure Tolerated: No Complications Procedure Outcome: Successful Performed By: Abbe Quinteros Supervised By: Cyn Luna
--- NOTE | 2024-06-13 07:23 | ROE_ITS ---
Date of service: 06/13/24 Time of Service: 08:00 Operative Note Operative Note DATE OF PROCEDURE: 06/13/24 PRE-OP DIAGNOSIS: Right: 1. Rotator cuff arthropathy 2. Long head of the biceps tendinopathy POST-OP DIAGNOSIS: same PROCEDURE: Right: 1. Reverse total shoulder arthroplasty, CPT # 02056 2. Open biceps tenodesis, CPT # 31815 The machine assistant was medically required as this procedure involves retraction, protection of neurovascular structures, and manipulation of multiple instruments and implants at the same time, which cannot be done without a skilled machine assistant. SURGEON: Trey Barraza FLYING II INSTRUCTOR: Vanessa Bazan ANESTHESIA TYPE: Local By Surgeon, General LMA/ETT and Primary Nerve Block Refer to Anesthesia Record ESTIMATED BLOOD LOSS: 300 COMPLICATIONS: None Patient was transported to: PACU Patient's condition: stable Implants: [employer] modular glenoid system baseplate 24 mm full 10 degree augment +2 lateralized [employer] modular glenoid system central post 25 mm [employer] modular glenoid system peripheral locking screws 28 mm inferior, 36 mm superior, 16 mm posterior, 16 mm anterior [employer] modular glenoid system glenosphere 42 +4 mm lateralized [employer] humeral stem 135 degrees size 9 [employer] suture cup size 42 posterior offset [employer] humeral insert size 42 +3 mm constrained Indications: Please see complete medical record for details. Findings: Significant partial tearing long head biceps with overlying tenosynovitis. Largely deficient subscapularis. Retracted torn deficient supraspinatus and infraspinatus. Some remnant rotator cuff far posteriorly. Significant glenohumeral degenerative changes chondromalacia synovitis capsular contracture and kumari labral degenerative tearing. Procedure Description: In the operating room, general anesthesia was induced. The patient was positioned beachchair on the operating room table. All bony prominences were well-padded. Preoperative antibiotics were administered. The shoulder was prepped and draped in the usual sterile fashion for shoulder arthroplasty. The correct patient, procedure, and side of the procedure were all verified prior to incision. The deltopectoral approach was preinjected with 0.25% bupivacaine containing epinephrine and taken to the anterior shoulder. Care was taken to bluntly dissect the interval between the deltoid and pectoralis major muscles and to identify the cephalic vein within its fat stripe. The the vein was mobilized laterally. Subdeltoid space and conjoined tendon were freed of adhesions. The long head of the biceps tendon was identified just lateral to the lesser tuberosity. The uppermost margin of the pectoralis major tendon was released from the proximal humerus. The long head of the biceps tendon was tenodesed in situ using SutureTape in a xitxpt-hv-mrjcw fashion securing it superior margin the pectoralis major tendon. The biceps tendon was amputated and followed proximally to identify the rotator interval. There was increased bleeding through all tissue planes seemingly due to the Eliquis with careful time intention spent ensuring adequate hemostasis. The lesser tuberosity was largely deficient of subscapularis and the inferior most area working on bone tendon and capsule released while working into external rotation. Going into internal r otation the greater tuberosity was largely devoid of soft tissue and any rotator cuff with some small tendon remnant removed. The anatomic neck was cut using an oscillating saw with the humeral head bone brought back table in case there was a need for future bone grafting. The proximal humerus was delivered from the wound with adduction and external rotation. The proximal humeral protection plate was used to provisionally confirm suture cup and glenosphere size. Reamers were started appropriately posterior to the bicipital groove taking care to maintain in line approach with the humeral canal. Sequential reaming was done from size 5 up to size 8. Next, the broaches were sequentially used to open the proximal humerus starting with a size 5 and going up to size 9 and sunk to the appropriate depth while maintaining approximately 25 degrees retroversion. There was good metaphyseal fit and rotational control of the proximal humerus with this size. The posterior offset guide was used to ream for the suture cup. Attention was then turned to the glenoid and retractors were placed and a circumferential release performed using the long head of the biceps remnant to remove soft tissue about the glenoid rim. Care was taken inferiorly to work on bone only between 5 and 7:00 o'clock and bluntly elevate tissues inferiorly. The VIP guide was placed on the glenoid and used to confirm placement and trajectory of the central guidepin. The guidepin was inserted and advanced just through the far cortex ensuring adequate central fixation length. The glenoid was prepared according to head correction officer specifications for a augmented baseplate and central post correcting the superior inclination and retroversion. The baseplate was impacted onto the glenoid surface. Lateralized chosen due to significant impinging surrounding tissues especially inferiorly. The locking guide was then used to drill and place appropriately lengthed inferior, superior, anterior, and posterior screws. The hugd-vhx-gjvbjmzvo reamer was used to confirm adequate peripheral reaming. The glenosphere was applied with the rotary drum tanner and then impacted to engage the Maya taper. It was then locked with appropriate countersinking of the setscrew. The glenosphere was inspected and found to have good fit, appropriate positioning, and no soft tissue or bony impingement. Attention was then turned back to the proximal humerus. The humeral trial cup was connected. Trialing was commenced with +3 mm liner, which demonstrated excellent stability and tension on the deltoid and conjoined tension. The trial components were removed from the proximal humerus. The wound was copiously irrigated with normal saline. The the proximal humeral stem and suture cup were assembled and brought over the proximal humerus. A small amount of vancomycin powder was distributed in the proximal humerus. The humeral component and suture cup were impacted into place. These component sat in the appropriate place and given the difficulty in dislocating the last use trial, the final liner was then connected, constrained chosen due to lack of rotator cuff stability, shoulder reduced and range of motion, stability, and tension confirmed. The shoulder was copiously irrigated with Betadine and normal saline. Vancomycin powder was distributed deeply about the shoulder and through subcutaneous tissues. The cephalic vein was noticed to have been stretched to the point of requiring coagulation carefully on both ends. The deltopectoral interval was reapproximated burying the vein using 2-0 Monocryl. Subcutaneous tissue was irrigated then closed using 2-0 Monocryl in a buried interrupted fashion. Skin was closed using 3-0 Monocryl in a buried subcuticular fashion. Skin glue was applied to the incision. A silver impregnated bandage was placed over the incision. The extremity was placed into a shoulder immobilizer. The patient awoke from anesthesia without complication and was taken to the recovery room in stable condition.
[2024-06-13] MEDS: ceFAZolin 2 GM/50 ML BAG IVPB (07:48)
[2024-06-13] MEDS: TRANEXAMIC ACID/SOD. CHL. 1,000 MG/100 ML BAG 600 MG IVPB (08:08)
[2024-06-13] MEDS: Bupivacaine 0.25% Pres-Free W/EPI 30 ML VIAL (08:40)
[2024-06-13] MEDS: ceFAZolin 1 GM/50 ML BAG IVPB (11:30)
--- NOTE | 2024-06-13 11:30 | DI.RAD_ITS ---
Exam(s) XR SHOULDER RT COMPLETE 2+V EXAM: XR SHOULDER RT COMPLETE 2+V CLINICAL HISTORY: shoulder arthritis. TECHNIQUE: 2D digital imaging was performed. COMPARISON: CR XR SHOULDER RT COMPLETE 2+V from 12/05/2023 FINDINGS: Two postop views: There is satisfactory position alignment of the components of the newly placed reverse prosthesis. N o fracture or loosening evident. IMPRESSION: Satisfactory postop appearance DATA REPOSITORY: RADIATION DOSE DELIVERED:
[2024-06-13] MEDS: ePHEDrine 25 MG/5 ML Syringe IVP (11:42)
[2024-06-13] MEDS: Lactobacillus Acidophilus CAP 1 CAP PO (13:01)
--- NOTE | 2024-06-13 13:38 | W.ANESPOSTOP ---
Postoperative Evaluation Date, Time and Location Date Performed: 06/13/24 Time Performed: 13:38 Patient Location: Day Surgery Unit Vital Signs Most Recent Imported Vital Signs: Most Recent Vital Signs Temp Pulse Resp BP Pulse Ox 36.6 C 76 16 108/42 L 96 06/13/24 12:54 06/13/24 12:54 06/13/24 12:54 06/13/24 12:54 06/13/24 12:54 Pain Score Most Recent Pain Score: Most Recent Pain Score Pain Level 0 06/13/24 12:54 Assessment Mental Status: Awake (Alert & Oriented to Patient Baseline) Airway and Respiratory Function: Patent airway with normal (patient baseline) respiratory exam Cardiovascular Function: Hemodynamically Stable Hydration Status: Adequately Hydrated Nausea & Vomiting: No Nausea or Vomiting Pain: Pt. Denies Any Pain Peripheral Nerve Block: Regional nerve block not resolved at time of post operative discharge
== END 2024-06-13 14:40 | disposition home or self-care (01) ==
PROVIDERS: PCP Family Medicine; Visit Provider Student in an Organized Health Care Education/Training Program
PROC: (CPT 23472; principal; 2024-06-13 07:30)
DX: M19.211 Secondary osteoarthritis, right shoulder (principal); M75.21 Bicipital tendinitis, right shoulder
CPT/HCPCS: 23472; 23430; C1713; 76942; 73030; C9290; J0665; J0690; J1100; J2001; J2371; J2405; J2704; J3370

== ENCOUNTER 2024-06-25 14:36 | Outpatient (CLI) | payer MEDICARE, BC, SELFPAY ==
--- NOTE | 2024-06-25 13:30 | DI.RAD_ITS ---
Exam(s) XR SHOULDER RT COMPLETE 2+V EXAM: XR SHOULDER RT COMPLETE 2+V CLINICAL HISTORY: F/U RIGHT RTSA. TECHNIQUE: 2D digital imaging was performed. COMPARISON: CR XR SHOULDER RT COMPLETE 2+V from 06/13/2024 FINDINGS: Two views. There is stable position alignment of the components the recently placed reverse prosthesis. No frac ture or loosening evident. However, there is some air-gas still evident within the lateral subacromi al soft tissues 12 days postop. Correlation with any clinical signs infection recommended. IMPRESSION: Persistent air-gas in the deep soft tissues adjacent to the placed reverse prosthesis (12 days ago). Correlation with any clinical signs of abscess recommended. DATA REPOSITORY: RADIATION DOSE DELIVERED:
== END 2024-06-25 14:37 | disposition home or self-care (01) ==
LOC: DIORS 14:37
PROVIDERS: PCP Family Medicine; Referring Provider Family Medicine; Visit Provider Student in an Organized Health Care Education/Training Program
DX: Z47.1 Aftercare following joint replacement surgery; Z96.611 Presence of right artificial shoulder joint
CPT/HCPCS: 73030

== ENCOUNTER → 2024-08-13 12:52 | Outpatient (BNVA) | payer MEDICARE, BC, SELFPAY | PROVIDERS: PCP Family Medicine; Visit Provider Student in an Organized Health Care Education/Training Program | DX: Z47.1 Aftercare following joint replacement surgery (principal); Z96.611 Presence of right artificial shoulder joint | CPT/HCPCS: 99024 ==

== ENCOUNTER 2024-09-27 00:16 | Outpatient (CLI) | payer MEDICARE, BC, SELFPAY ==
--- NOTE | 2024-09-27 07:00 | DI.RAD_ITS ---
Exam(s) RF BARIUM SWALLOW EXAM: RF BARIUM SWALLOW CLINICAL HISTORY: Pain with swallowing, feeling of food stuck,dysphagia,r13.10 TECHNIQUE: 2D and realtime digital imaging was performed. CONTRAST MATERIAL: Oral barium contrast was administered. COMPARISON: No exams were available for comparison FINDINGS: CHEST X-RAY: The heart and pulmonary vasculature are within normal limits. The lungs are clear. No pl eural effusion or pneumothorax is present. The bones are within normal limits for the patient's age. ESOPHAGRAM: The esophagus is patent with no evidence for erosions, fold thickening, strictures, or ma sses. With regards to the motility, there is a normal primary stripping wave. No tertiary contraction s were noted. There is no hiatal hernia or gastroesophageal reflux. The patient was able to swallow a barium tablet without complication. IMPRESSION: Unremarkable examination. RADIATION DOSE DELIVERED: diana Mota=17.2 mGy
[2024-09-27] MEDS: Barium Sulfate 60% W/V 355 ML BTL PO (11:38)
[2024-09-27] MEDS: Barium Sulfate 700 MG TAB PO (11:38)
[2024-09-27] MEDS: Barium Sulfate 98% W/W 140 ML BTL PO (11:40)
== END 2024-09-27 00:36 ==
LOC: DI 00:17
PROVIDERS: PCP Family Medicine; Visit Provider Family Medicine
DX: R13.10 Dysphagia, unspecified (principal)
CPT/HCPCS: 74221; J3490

== ENCOUNTER 2024-10-15 15:56 | Outpatient (CLI) | payer MEDICARE, BC, SELFPAY ==
--- NOTE | 2024-10-15 13:12 | DI.RAD_ITS ---
Exam(s) XR SHOULDER RT COMPLETE 2+V EXAM: XR SHOULDER RT COMPLETE 2+V CLINICAL HISTORY: F/U RIGHT RTSA. TECHNIQUE: 2D digital imaging was performed. Two images were obtained. Grashey and Y views were obt ained. COMPARISON: CR XR SHOULDER RT COMPLETE 2+V from 06/25/2024 FINDINGS: BONES: There are stable post operative changes of a reverse total shoulder arthroplasty present. No fracture or dislocation. JOINTS: The orthopedic hardware is in good position. No evidence of hardware loosening. There are d egenerative changes seen at the acromioclavicular joint. SOFT TISSUE: Normal. IMPRESSION: Stable right reverse total shoulder arthroplasty. DATA REPOSITORY: RADIATION DOSE DELIVERED:
== END 2024-10-15 15:57 | disposition home or self-care (01) ==
LOC: DIORS 15:56
PROVIDERS: PCP Family Medicine; Referring Provider Family Medicine; Visit Provider Student in an Organized Health Care Education/Training Program
DX: Z47.1 Aftercare following joint replacement surgery (principal); Z96.611 Presence of right artificial shoulder joint
CPT/HCPCS: 99213; 73030

== ENCOUNTER → 2024-11-27 15:22 | Outpatient (BNVA) | payer MEDICARE, BC, SELFPAY | PROVIDERS: PCP Family Medicine; Referring Provider Family Medicine; Visit Provider Nurse Practitioner Gerontology | DX: R35.1 Nocturia (principal); N40.1 Benign prostatic hyperplasia with lower urinary tract symptoms | CPT/HCPCS: 51798; 99213 ==

== ENCOUNTER 2025-03-13 09:13 | Outpatient (CLI) | payer MEDICARE, BC, SELFPAY ==
--- NOTE | 2025-03-13 09:00 | RT.EKG_ITS ---
APPROVED REPORT Exam: Resting ECG Reason for Exam: afib Patient Location: O HR:57 bpm ECG Measurements Heart Rate 57 AXIS [place] [id number] P [id number] QRSd 101 QRS -38 QT 410 T 5 QTc 400 Conclusion Atrial fibrillation...V-rate 49- 65, irreg A-activity Left axis deviation...QRS axis (-30,-90)
== END 2025-03-13 09:14 | disposition home or self-care (01) ==
LOC: DI.CARD 09:14
PROVIDERS: PCP Family Medicine; Visit Provider Internal Medicine Cardiovascular Disease
DX: I49.3 Ventricular premature depolarization (principal); I48.91 Unspecified atrial fibrillation
CPT/HCPCS: 93010

== ENCOUNTER → 2025-03-13 13:31 | Outpatient (BNVA) | payer MEDICARE, BC, SELFPAY | PROVIDERS: PCP Family Medicine; Referring Provider Family Medicine; Visit Provider Internal Medicine Cardiovascular Disease | DX: I48.91 Unspecified atrial fibrillation (principal); I49.3 Ventricular premature depolarization; I35.9 Nonrheumatic aortic valve disorder, unspecified; Z79.01 Long term (current) use of anticoagulants | CPT/HCPCS: 99214; 93005 ==

== ENCOUNTER 2025-05-21 04:05 | Outpatient (CLI) | payer MEDICARE, BC, SELFPAY ==
[2025-05-21 18:08] LABS: PSA, Diagnostic 1.4 ng/mL (<=6.5)
== END 2025-05-21 04:06 | disposition home or self-care (01) ==
LOC: LBO 04:05
PROVIDERS: PCP Family Medicine; Visit Provider Nurse Practitioner Gerontology
DX: N40.1 Benign prostatic hyperplasia with lower urinary tract symptoms (principal)
CPT/HCPCS: 36415; 84153

== ENCOUNTER → 2025-05-28 14:20 | Outpatient (BNVA) | payer MEDICARE, BC, SELFPAY | PROVIDERS: PCP Family Medicine; Referring Provider Family Medicine; Visit Provider Nurse Practitioner Gerontology | DX: N40.1 Benign prostatic hyperplasia with lower urinary tract symptoms (principal); R39.9 Unspecified symptoms and signs involving the genitourinary system | CPT/HCPCS: 99213; 51798 ==

== ENCOUNTER 2025-06-24 13:41 | Outpatient (CLI) | payer MEDICARE, BC, SELFPAY ==
--- NOTE | 2025-06-24 12:45 | DI.RAD_ITS ---
Exam(s) XR SHOULDER RT COMPLETE 2+V EXAM: XR SHOULDER RT COMPLETE 2+V CLINICAL HISTORY: F/U RIGHT RTSA. TECHNIQUE: 2D digital imaging was performed. Three images were obtained. Grashey, Y and axillary views were obtained. 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 No fracture or dislocation. JOINTS: The orthopedic hardware is in good position. No evidence of hardware loosening. There are degenerative changes seen at the acromioclavicular joint. SOFT TISSUE: Normal. IMPRESSION: Stable right reverse total shoulder arthroplasty. DATA REPOSITORY: RADIATION DOSE DELIVERED:
== END 2025-06-24 13:42 | disposition home or self-care (01) ==
LOC: DIORS 13:41
PROVIDERS: PCP Family Medicine; Referring Provider Family Medicine; Visit Provider Student in an Organized Health Care Education/Training Program
DX: Z47.1 Aftercare following joint replacement surgery (principal); Z96.611 Presence of right artificial shoulder joint; M19.211 Secondary osteoarthritis, right shoulder
CPT/HCPCS: 99213; 73030